=== PATIENT | female | born 1940 | race Hispanic/Latino ===

== ENCOUNTER 2018-05-19 20:50 | Emergency (ER) | payer MEDICARE, OTHER ==
[~2018-05-19] VITALS: Ht 147.3 cm; Wt 78.9 kg
[2018-05-19] MEDS ORDERED: ALBUTEROL/IPRATROPIUM 3 ML NEB NEB ONE (21:15)
[2018-05-19] MEDS ORDERED: METHYLPREDNISOLONE SOD SUCC 125 MG/2ML VIAL IV ONE (21:15)
[2018-05-19] MEDS ORDERED: CEFTRIAXONE SOD 1 GM VIAL IV SCH (22:30)
--- NOTE | 2018-05-19 22:45 | Diagnostic Imaging Report ---
Exam: AP view of the chest Indication: Cough, congestion Comparison: None Findings: Mild bronchial thickening without consolidation. The cardiomediastinal silhouette and bones are unremarkable. Surgical clips right upper quadrant of the abdomen. Impression: Mild bronchial thickening without consolidation. Findings are nonspecific, but can be seen in atypical/viral infection. Signed by: Dr. Marisel Ku M.D. on 05/19/2018 10:42 PM
== END 2018-05-20 00:35 | disposition other institution (70) ==
LOC: FSED 20:50
DX: R09.02 Hypoxemia (principal); R05 Cough; J11.08 Influenza due to unidentified influenza virus with specified pneumonia
CPT/HCPCS: 71045; 80053; 82553; 84484; 85025; 87040; 87071; 87205; 99284; J2930

== ENCOUNTER 2018-06-07 15:10 | Inpatient (IN) | payer MEDICARE, OTHER ==
[~2018-06-07] VITALS: Ht 160 cm; Wt 78.0 kg
--- OUTSIDE RECORDS SUMMARY | 2018-06-07 15:14 | XMS REPORT ---
Author Author Kym Chávez Organization [employer] Address Unknown Phone Unavailable Care Team Providers Care Guide Escort Name Role Phone Kym Chávez Unavailable Allergies, Adverse Reactions, Alerts Substance Reaction Event Type N.K.D.A. 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 Problem Benign hypertensive heart disease I11.9 Active Problem Hypothyroid E03.9 Active Problem Diabetes mellitus E11.9 Active Problem Exercise-induced shortness of breath R06.02 Active Assessment Obesity E66.9 Active Assessment Hypothyroid E03.9 Active Assessment Left arm numbness R20.0 Active Assessment Varicose veins of lower extremities with other complications I83.893 Active Assessment Benign hypertensive heart disease I11.9 Active Assessment Exercise-induced shortness of breath R06.02 Active Assessment Pure hypercholesterolemia E78.01 Active Assessment Chest pain R07.9 Active Assessment Diabetes mellitus E11.9 Active Problem Pure hypercholesterolemia E78.01 Active Medications Medication Code System Code Instructions Start Date End Date Status Dosage Losartan Potassium [facility] [address]-34 25 MG Orally Once a day Active 1 tablet Simvastatin [facility] [address]-54 20 mg Orally Once a day Active 1 tablet Levothyroxine Sodium [facility] [address]-52 50 MCG Orally Once a day Active 1 tablet Atenolol [facility] [address]-24 25 MG Orally Once a day Active 1 tablet once a day orally 90 days Tramadol HCl [facility] [address]-11 50 mg Orally as needed (prn) Active 1 tablet Lamotrigine [facility] [address]-07 25 MG Orally Twice a day Active 3 tablets Vital Signs Date/Time: September 28, 2016 BMI 31.55 Index Weight 167 lbs Height 61 in Temperature 97.6 F Cardiac Monitoring Heart Rate 58 /min Blood Pressure Diastolic 80 mm Hg Blood Pressure Systolic 132 mm Hg Results No Known Results Summary Purpose [employer] Submission
--- OUTSIDE RECORDS SUMMARY | 2018-06-07 15:14 | XMS REPORT ---
Author Author Kym Chávez Organization [employer] Address Unknown Phone Unavailable Care Team Providers Care Architecture Internship Name Role Phone Kym Chávez Unavailable Allergies, Adverse Reactions, Alerts Substance Reaction Event Type N.K.D.A. Info Not Available Non Drug Allergy Problems Problem Type Condition Code Onset Dates Condition Status Assessment Chest pain R07.9 Active Problem Chest pain R07.9 Active Problem Pure hypercholesterolemia E78.01 Active Problem Diabetes mellitus E11.9 Active Problem Exercise-induced shortness of breath R06.02 Active Problem Varicose veins of lower extremities with other complications I83.893 Active Problem Obesity E66.9 Active Problem Venous insufficiency I87.2 Active Problem Benign hypertensive heart disease I11.9 Active Problem Hypothyroid E03.9 Active Assessment Venous insufficiency I87.2 Active Assessment Obesity E66.9 Active Assessment Pure hypercholesterolemia E78.01 Active Assessment Varicose veins of lower extremities with other complications I83.893 Active Assessment Diabetes mellitus E11.9 Active Assessment Hypothyroid E03.9 Active Assessment Benign hypertensive heart disease I11.9 Active Assessment 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 Assessment Exercise-induced shortness of breath R06.02 Active Medications Medication Code System Code Instructions Start Date End Date Status Dosage Lamotrigine [facility] [address]-64 25 MG Orally Twice a day Active 3 tablets Simvastatin [facility] [address]-77 20 mg Orally Once a day Active 1 tablet Levothyroxine Sodium [facility] [address]-26 50 MCG Orally Once a day Active 1 tablet Atenolol [facility] 50026686042 25 MG Active 1 TABLET ONCE A DAY ORALLY 90 DAYS Sertraline HCl [facility] [address]-70 50 mg Orally Once a day Active 1 tablet Metformin HCl [facility] [address]-02 500 mg Orally once a day Active 1 tablet Tramadol HCl [facility] [address]-57 50 mg Orally as needed (prn) Active 1 tablet Losartan Potassium [facility] [address]-56 25 MG Orally Once a day Active 1 tablet Vital Signs Date/Time: Jan 21, 2016 BMI 32.87 Index Weight 174 lbs Height 61 in Temperature 98.1 F Cardiac Monitoring Heart Rate 52 /min Blood Pressure Diastolic 82 mm Hg Blood Pressure Systolic 124 mm Hg Results No Known Results Summary Purpose [employer] Submission
--- OUTSIDE RECORDS SUMMARY | 2018-06-07 15:14 | XMS REPORT | Continuity of Care Document ---
Author Author [facility] Interface Address Unknown Phone Unavailable Problems Problem Status Onset Date Classification Date Reported Comments Source PNA Active 05/19/2018 [facility] FLU A Active 05/19/2018 [facility] UNK Active 10/13/2016 [facility] Z12.31 - ENCNTR SCREEN MAMMOGRAM FOR MA Active 04/19/2016 OP[facility] Brandon 553.3/530.81/562.10 Active 03/10/2011 [facility] OTHER Active 03/10/2011 [facility] ABNORMAL LIVER ENZYMES Active 02/10/2011 [facility] 790.4/530.81/536.8 Active 02/04/2011 [facility] Venous insufficiency Active Problem 06/03/2018 Thiago Chávez Benign hypertensive heart disease Active Problem 06/03/2018 Thiago Chávez Exercise-induced shortness of breath Active Problem 06/03/2018 Thiago Chávez Status post ablation of incompetent vein using laser Active Problem 06/03/2018 Thiago Chávez Left arm numbness Active Problem 06/03/2018 Thiago Chávez Arteriosclerosis of both carotid arteries Active Problem 06/03/2018 Thiago Chávez Hypothyroid Active Problem 06/03/2018 Thiago Chávez Diabetes mellitus Active Problem 06/03/2018 Thiago Chávez Pure hypercholesterolemia Active Problem 06/03/2018 Thiago Chávez Varicose veins of lower extremities with other complications Active Problem 06/03/2018 Thiago Chávez Obesity Active Diagnosis 06/03/2018 Thiago Chávez Chest pain Active Problem 06/03/2018 Thiago Chávez Diabetes mellitus Active Diagnosis 12/13/2015 Mohgeoff Chávez Hypercholesterolemia Active Problem 12/13/2015 Thiago Chávez Varicose veins of leg with swelling Active Problem 12/13/2015 Thiago Chávez Chronic cerebrospinal venous insufficiency Active Problem 04/13/2014 Thiago Chávez Cardiac pain Active Problem 12/13/2015 Thiago Chávez Varicose veins of lower extremities with other complications Active Problem 12/13/2015 Thiago Greg Chávez Mitral valve disorder Active Problem 12/13/2015 Thiago Greg Chávez Tricuspid valve abscess Active Problem 12/13/2015 Thiago Greg Chávez Exercise-induced shortness of breath Active Problem 12/13/2015 Thiago Greg Chávez Benign hypertensive heart disease Active Problem 12/13/2015 Thiago Greg Chávez Generalized osteoarthrosis Active Problem 12/13/2015 Lizetgeoff Greg Chávez Hypothyroidism Active Diagnosis 12/13/2015 Lizetge[facility] Greg Chávez Obesity Active Diagnosis 12/13/2015 Lizet[facility] Greg Chávez Chronic venous insufficiency Active Problem 03/13/2014 Lizetge[facility] Greg Chávez Venous insufficiency (peripheral) Active Problem 12/13/2015 Lizetge[facility] Greg Chávez Varicose veins of lower extremities with complications Active Problem 12/13/2015 Lizetgeoff Greg Chávez Final: Encounter for screening mammogram for malignant neoplasm of breast 04/24/2017 OP[facility] Brandon Acid reflux Active Problem 04/24/2017 OPID Brandon,[facility] Pneumonia of lower lobe due to infectious organism, unspecified laterality Active Diagnosis 06/02/2018 [facility] PNEUMONIA, UNSPECIFIED ORGANISM Active [facility] FLU DUE TO OTH IDENT INFLUENZA VIRUS W O Active [facility] Medications Medication Details Route Status Patient Instructions Ordering Provider Order Date Source Mucinex DM 1 tablet as needed Orally Active 30-600 MG Orally every 12 hrs Ghebranious 05/31/2018 [facility] Levaquin 1 tablet Orally Active 500 mg Orally Once a day Ghebranious 05/31/2018 [facility] Hydralazine 10 mg, Route: IVP, Q20Min, Dosing Weight 77.301, kg, PRN Elevated BP, Start date: 11/04/16 8:33:00 CDT, Duration: 2 doses or times, Stop date: Limited # of times Inactive 11/04/2016 [facility] Labetalol 10 mg, Route: IVP, Q5Min, Dosing Weight 77.301, kg, PRN Elevated BP, Start date: 11/04/16 8:33:00 CDT, Duration: 5 doses or times, Stop date: Limited # of times Inactive 11/04/2016 [facility] esmolol 10 mg, Route: IVP, Q5Min, Dosing Weight 77.301, kg, PRN Other -See Comment, Start date: 11/04/16 8:33:00 CDT, Duration: 5 doses or times, Stop date: Limited # of times Inactive 11/04/2016 [facility] Acetaminophen 1,000 mg, Route: PO, Drug form: TAB, ONCE, Dosing Weight 77.301, kg, PRN Pain Score 1-3, Start date: 11/04/16 8:33:00 CDT, Duration: 1 doses or times, Stop date: Limited # of times Inactive 11/04/2016 [facility] Oxycodone 5 mg, Route: PO, Drug form: TAB, Q4H, Dosing Weight 77.301, kg, PRN Pain Score 4-6, Start date: 11/04/16 8:33:00 CDT, Duration: 30 day, Stop date: 12/04/16 8:32:00 CDT Inactive 11/04/2016 [facility] Naloxone 0.4 mg, Route: IVP, Q2MIN, Dosing Weight 77.301, kg, PRN Narcotic Reversal, Start date: 11/04/16 8:33:00 CDT, Duration: 8 doses or times, Stop date: Limited # of times Inactive 11/04/2016 [facility] Albuterol 0.83 MG/ML Inhalant Solution 2.49 mg, Route: NEB, Q20Min, Dosing Weight 77.301, kg, PRN Wheezing, Priority: STAT, Start date: 11/04/16 8:33:00 CDT, Duration: 30 day, Stop date: 12/04/16 8:32:00 CDT Inactive 11/04/2016 [facility] Hydromorphone 0.5 mg, Route: IVP, Q5Min, Dosing Weight 77.301, kg, PRN Pain Score 7-10, Start date: 11/04/16 8:33:00 CDT, Duration: 4 doses or times, Stop date: Limited # of times Inactive 11/04/2016 [facility] Flumazenil 0.2 mg, Route: IVP, PRN, Dosing Weight 77.301, kg, PRN Benzodiazepine Reversal, Initial dose, Start date: 11/04/16 8:33:00 CDT, Duration: 30 day, Stop date: 12/04/16 8:32:00 CDT Inactive 11/04/2016 [facility] Ondansetron 4 mg, Route: IVP, ONCE, Dosing Weight 77.301, kg, PRN Nausea & Vomiting, Start date: 11/04/16 8:33:00 CDT Inactive 11/04/2016 [facility] Promethazine 6.25 mg, Route: IVPB, ONCE, Dosing Weight 77.301, kg, PRN Nausea & Vomiting, Start date: 11/04/16 8:33:00 CDT Inactive 11/04/2016 [facility] Diphenhydramine 12.5 mg, Route: IVP, Drug form: INJ, Q6H, Dosing Weight 77.301, kg, PRN Itching, Start date: 11/04/16 8:33:00 CDT, Duration: 30 day, Stop date: 12/04/16 8:32:00 CDT Inactive 11/04/2016 [facility] Meperidine 12.5 mg, Route: IVP, Q30Min, Dosing Weight 77.301, kg, PRN Other -See Comment, For shivering, Start date: 11/04/16 8:33:00 CDT, Duration: 2 doses or times, Stop date: Limited # of times Inactive 11/04/2016 [facility] Calcium Chloride 0.0014 MEQ/ML / Potassium Chloride 0.004 MEQ/ML / Sodium Chloride 0.103 MEQ/ML / Sodium Lactate 0.028 MEQ/ML Injectable Solution 1,000 mL, Rate: 125 ml/hr, Infuse over: 8 hr, Route: IV, Dosing Weight 77.301 kg, Total Volume: 1,000, Start date: 11/04/16 8:33:00 CDT, Duration: 30 day, Stop date: 12/04/16 8:32:00 CDT Inactive 11/04/2016 [facility] esmolol (ANES) Route: IV, Drug form: INJ, ONCE, Stop date: 11/04/16 8:21:00 CDT Inactive 11/04/2016 [facility] lidocaine (ANES) Route: IV, Drug form: INJ, ONCE, Stop date: 11/04/16 8:12:00 CDT Inactive 11/04/2016 [facility] fentaNYL (ANES) Route: IV, Drug form: INJ, ONCE, Stop date: 11/04/16 8:12:00 CDT Inactive 11/04/2016 [facility] ceFAZolin (ANES) Route: IV, Drug form: INJ, ONCE, Stop date: 11/04/16 8:12:00 CDT Inactive 11/04/2016 [facility] midazolam (ANES) Route: IV, Drug form: SOLN, ONCE, Stop date: 11/04/16 8:12:00 CDT Inactive 11/04/2016 [facility] acetaminophen (ANES) (ANES) Route: IV, Drug form: INJ, Start date: 11/04/16 7:52:00 CDT, Stop date: 11/04/16 8:52:00 CDT Inactive 11/04/2016 [facility] Albuterol 0.833 MG/ML / Ipratropium Hull 0.167 MG/ML Inhalant Solution 3 mL, Route: NEB, Dosing Weight 77.301, kg, ONCE, STAT, Start date: 11/04/16 7:39:00 CDT, Stop date: 11/04/16 7:39:00 CDT Inactive 11/04/2016 [facility] Calcium Chloride 0.0014 MEQ/ML / Potassium Chloride 0.004 MEQ/ML / Sodium Chloride 0.103 MEQ/ML / Sodium Lactate 0.028 MEQ/ML Injectable Solution 1,000 mL, Rate: 25 ml/hr, Infuse over: 40 hr, Route: IV, Dosing Weight 77.301 kg, Total Volume: 1,000, Start date: 11/04/16 7:39:00 CDT, Duration: 30 day, Stop date: 12/04/16 7:38:00 CDT Inactive 11/04/2016 [facility] propofol (ANES) (ANES) Route: IV, Drug form: INJ, Start date: 11/04/16 7:30:00 CDT, Stop date: 11/04/16 8:30:00 CDT Inactive 11/04/2016 [facility] LR 1000 mL INJ (ANES) Route: IV, Total Volume: 1,000, Start date: 11/04/16 7:25:00 CDT, Stop date: 11/04/16 8:25:00 CDT Inactive 11/04/2016 [facility] Lamotrigine 3 tablets Orally Active 25 MG Orally Twice a day Kyler Chávez Simvastatin 1 tablet Orally Active 20 mg Orally Once a day Kyler Chávez Tramadol HCl 1 tablet Orally Active 50 mg Orally as needed (prn) Kyler Chávez Losartan Potassium 1 tablet Orally Active 25 MG Orally Once a day Alejandropatel Chávez Atenolol 1 tablet once a day orally 90 days Orally Active 25 MG Orally Once a day Alejandropatel Chávez Levothyroxine Sodium 1 tablet Orally Active 50 MCG Orally Once a day Alejandropatel Chávez Lamotrigine 3 tablets Orally Active 25 MG Orally Twice a day Alejandropatel Chávez Simvastatin 1 tablet Orally Active 20 mg Orally Once a day Alejandropatel Chávez Levothyroxine Sodium 1 tablet Orally Active 50 MCG Orally Once a day Alejandropatel Chávez Sertraline HCl 1 tablet Orally Active 50 mg Orally Once a day Alejandropatel Chávez Metformin HCl 1 tablet Orally Active 500 mg Orally once a day Alejandropatel Chávez Tramadol HCl 1 tablet Orally Active 50 mg Orally as needed (prn) Alejandropatel Chávez Losartan Potassium 1 tablet Orally Active 25 MG Orally Once a day Alejandropatel Chávez Atenolol 1 tablet once a day orally 90 days Orally Active 25 MG Orally Once a day Alejandropatel Chávez Divalproex Sodium 2 tablet Orally Active 500 mg Orally once a day Alejandropatel Chávez Sertraline HCl 1 tablet Orally Active 50 mg Orally Once a day Alejandropatel Chávez Naproxen 1 tablet Orally Active 500 mg Orally as needed (prn) Alejandropatel Chávez Nexium 1 capsule Orally Active 40 MG Orally Once a day Alejandropatel Chávez Duloxetine HCl 1 capsule Orally Active 60 MG Orally Once a day Alejandropatel Chávez Abilify 1/2 half tablet Orally Active 5 MG Orally Once a day Alejandropatel Chávez Amlodipine Besylate 1 tablet Orally Active 5 MG Orally Once a day if SBP >135 Ghebranious [facility] Dextromethorphan-Guaifenesin 10 ml as needed Orally Active 10- 100 MG/5ML Orally every 4 hrs Ghebranious [facility] PredniSONE as directed Orally Active 10 mg Orally 2 tablets x3 dats, 1 tablet x3 days and 1/2 tablet for 3 days Ghebranious [facility] Losartan Potassium 1 tablet Orally Active 100 MG Orally Once a day ebranious [facility] Acetaminophen 1 tablet as needed Orally Active 325 MG Orally every 4 hrs Ghebranious [facility] Lamotrigine 1 tablet Orally Active 200 MG [facility] Omeprazole 1 capsule Orally Active 40 mg Orally [facility] Ranitidine HCl 1 capsule at bedtime Orally Active 150 MG Orally [facility] Naproxen 1 tablet with food or milk as needed Orally Active 375 MG Orally every 12 hrs [facility] Levothyroxine Sodium 1 tablet on an empty stomach in the morning Orally Active 50 MCG Orally Once a day [facility] Allergies, Adverse Reactions, Alerts Substance Category Reaction Severity Reaction type Status Date Reported Comments Source N.K.D.A. 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 No signs or symptoms provided. Comparison: None FINDINGS LUNGS: The lungs are clear of consolidation, pleural effusion, and pneumothorax. Mild prominence of the pulmonary vascularity and interstitium likely related to image technique or mild interstitial disease. A lobulated opacity measuring up to 2.1 seen laterally in right lung base on the PA film may represent artifact, but early consolidation or pulmonary lesion is not excluded. HEART AND MEDIASTINUM: Mild cardiomegaly. LINES: None. OSSEOUS STRUCTURES: No fracture, dislocation, or suspicious focal osseous lesion. OTHER: None. IMPRESSION: 1. Indeterminate lobulated opacity laterally in the right lung base may represent artifact, indeterminate pulmonary lesion, or early consolidation. Short interval follow-up radiographs or CT chest is recommended. 2. Mild prominence of the interstitium and pulmonary vascularity either related to image technique or mild interstitial disease. 3. Mild cardiomegaly. SL: TPAINTER-PC 05/20/2018 - - Read by: Richi Garcia MD Dictated Date/time: 05/20/18 14:33 Electronically Signed by: Richi Garcia MD 05/20/18 14:35 FINAL REPORT [facility] Breast Mammo Scrn CHRISTOPHER incl CAD MA Breast Mammo Scrn CHRISTOPHER incl CAD MA BILATERAL DIGITAL SCREENING MAMMOGRAM WITH CAD: 04/21/2017 CLINICAL: Routine/Screening. Current study was evaluated with a Computer Aided Detection (CAD) system. COMPARISON:Comparison is made to exams dated: 04/19/2016 mammogram, 04/11/2015 mammogram, 10/05/2013 mammogram, and 09/29/2012 mammogram - [facility]. TECHNIQUE: Mammographic views were obtained using digital acquisition. Current study was also evaluated with a Computer Aided Detection (CAD) system. FINDINGS: The tissue of both breasts is almost entirely fat. There are benign vascular calcifications in both breasts. No significant masses, calcifications, or other findings are seen in either breast. There has been no significant interval change. IMPRESSION: BENIGN RECOMMENDATION:There is no mammographic evidence of malignancy. A 1 year screening mammogram is recommended.(04/22/2018) This exam was interpreted at [id number] at [facility]. Tiarra Anderson M.D. ak/penrad:04/21/2017 14:27:23 Child Watch Attendant(s): RT Augustus(R)(M), [facility] letter sent: BI-RADS 1/2 Mammogram BI-RADS: 2 Benign 04/21/2017 - - Read by: Tiarra Anderson MD Dictated Date/time: 04/21/17 14:27 Electronically Signed by: Tiarra Anderson MD 04/21/17 14:27 [facility] CHEM PANEL Glucose Lvl 76 mg/dL 70 - 99 11/03/2016 [facility] HEMATOLOGY Monocytes # 0.5 K/CMM 0.0 - 0.8 11/03/2016 [facility] HEMATOLOGY Eosinophils # 0.2 K/CMM 0.0 - 0.5 11/03/2016 [facility] Lymphocytes # 1.5 K/CMM 1.0 - 5.5 11/03/2016 [facility] Segs-Bands # 4.1 K/CMM 1.5 - 8.1 11/03/2016 [facility] Basophils # 0.1 K/CMM 0.0 - 0.2 11/03/2016 [facility] Monocytes 8.2 % 2.0 - 12.0 11/03/2016 [facility] Lymphocytes 24.0 % 20.0 - 40.0 11/03/2016 [facility] Segs 63.5 % 45.0 - 75.0 11/03/2016 [facility] Plt Morph Normal (11/03/16 3:06 PM) 11/03/2016 [facility] Basophils 1.1 % 0.0 - 1.0 11/03/2016 [facility] Eosinophils 3.2 % 0.0 - 4.0 11/03/2016 [facility] RBC Morph Normal (11/03/16 3:06 PM) 11/03/2016 [facility] WBC 6.4 K/CMM 3.7 - 10.4 11/03/2016 [facility] MCV 82.0 fL 80.0 - 98.0 11/03/2016 [facility] Platelet 171 K/CMM 133 - 450 11/03/2016 [facility] MCH 26.9 pg 27.0 - 31.0 11/03/2016 [facility] RDW 14.9 % 11.5 - 14.5 11/03/2016 [facility] MCHC 32.8 g/dL 32.0 - 36.0 11/03/2016 [facility] Hgb 10.8 g/dL 12.0 - 16.0 11/03/2016 [facility] Hct 32.8 % 36.0 - 48.0 11/03/2016 [facility] RBC 4.00 M/CMM 4.20 - 5.40 11/03/2016 [facility] MPV 8.0 fL 7.4 - 10.4 11/03/2016 [facility] Digital Mammo Screening Christopher MA Digital Mammo Screening Christopher MA - DIGITAL MAMMO SCREENING CHRISTOPHER MA BILATERAL DIGITAL SCREENING MAMMOGRAM WITH CAD: 04/19/2016 CLINICAL: Routine. Current study was evaluated with a Computer Aided Detection (CAD) system. Comparison is made to exams dated: 04/11/2015 mammogram, 10/05/2013 mammogram, 09/29/2012 mammogram, 06/22/2011 mammogram - [facility], 01/30/2010 mammogram - [facility] and 11/20/2008 mammogram. The tissue of both breasts is almost entirely fat. There are benign vascular calcifications in both breasts. No significant masses, calcifications, or other findings are seen in either breast. There has been no significant interval change. IMPRESSION: BENIGN There is no mammographic evidence of malignancy. A 1 year screening mammogram is recommended. Professional services are provided by the [facility]. Idris Dubose M.D., cm/penrad:04/20/2016 10:35:06 Child Watch Attendant: Lashae WRIGHT(R)(Lynette), [facility] This exam was dictated and interpreted by [id number] for ALEX Daniels 15. letter sent: Normal exam Mammogram BI-RADS: 2 Benign 04/19/2016 - - Read by: Reg Dubose III, MD Dictated Date/time: 04/20/16 10:35 Electronically Signed by: Rge Dubose III, MD 04/20/16 10:35 FINAL REPORT MARIBETH Clements Digital Mammo Screening Christopher MA Digital Mammo Screening Christopher MA - DIGITAL MAMMO SCREENING CHRISTOPHER MA BILATERAL DIGITAL SCREENING MAMMOGRAM WITH CAD: 04/11/2015 CLINICAL: Routine. Current study was evaluated with a Computer Aided Detection (CAD) system. Comparison is made to exams dated: 10/05/2013 mammogram, 09/29/2012 mammogram, 06/22/2011 mammogram - [facility], 01/30/2010 mammogram - [facility], 11/20/2008 mammogram and 11/09/2004 mammogram. The tissue of both breasts is almost entirely fat. There are benign vascular calcifications in both breasts. No significant masses, calcifications, or other findings are seen in either breast. There has been no significant interval change. IMPRESSION: BENIGN There is no mammographic evidence of malignancy. A 1 year screening mammogram is recommended. Irdis Dubose M.D., cm/penrad:04/14/2015 08:49:33 Child Watch Attendant: Sruthi Trimble, [facility] This exam was dictated and interpreted by [id number] for Brandon. letter sent: Normal exam Mammogram BI-RADS: 2 Benign 04/11/2015 - - Read by: Reg Gutierrez MD Dictated Date/time: 04/14/15 08:49 Electronically Signed by: Reg Gutierrez MD 04/14/15 08:49 FINAL REPORT LESVIA Clements Vital Signs Vital Sign Value Date Comments Source Weight 178 05/03/2018 Mohamed O Jeroudi Height 61 05/03/2018 Mohamed O Jeroudi Temperature Oral (F) 96.0 F 05/03/2018 [facility] Heart Rate 88 05/03/2018 [facility] O Jer[facility]i Diastolic (mm Hg) 82 05/03/2018 Mohamed O Jeroudi Systolic (mm Hg) 138 05/03/2018 Mohamed O Jeroudi Systolic (mm Hg) 105 11/04/2016 [facility] Diastolic (mm Hg) 55 11/04/2016 [facility] Systolic (mm Hg) 151 11/04/2016 [facility] Diastolic (mm Hg) 95 11/04/2016 [facility] Systolic (mm Hg) 135 11/04/2016 [facility] Diastolic (mm Hg) 51 11/04/2016 [facility] Respitory Rate 15 11/04/2016 [facility] Respitory Rate 15 11/04/2016 [facility] Respitory Rate 17 11/04/2016 [facility] BMI Calculated 32.2 11/03/2016 [facility] Weight 77.301 11/03/2016 [facility] Height 154.94 cm 11/03/2016 [facility] Heart Rate 63 11/03/2016 [facility] Temperature Oral (F) 98.0 F 11/03/2016 [facility] Weight 169 10/13/2016 [facility] [place] 61 10/13/2016 Mohamed O Jeroudi Temperature Oral (F) 97.1 F 10/13/2016 Mohamed O Jeroudi Heart Rate 60 10/13/2016 Mohamed O Jeroudi Diastolic (mm Hg) 80 10/13/2016 Mohamed O Jeroudi Systolic (mm Hg) 122 10/13/2016 Moh[facility] O Jer[facility]i Weight 167 09/28/2016 Mohamed O Jeroudi Height 61 09/28/2016 Mohamed O Jeroudi Temperature Oral (F) 97.6 F 09/28/2016 [facility] O [facility]i Heart Rate 58 09/28/2016 Mohamed O Jeroudi Diastolic (mm Hg) 80 09/28/2016 Mohamed O Jeroudi Systolic (mm Hg) 132 09/28/2016 Mohamed O Jeroudi Weight 173 02/05/2016 Mohamed O Jeroudi Height 61 02/05/2016 Mohamed O Jeroudi Temperature Oral (F) 97.5 F 02/05/2016 [facility] O Jeroudi Heart Rate 60 02/05/2016 Mohamed O Jeroudi Diastolic (mm Hg) 80 02/05/2016 Mohamed O Jeroudi Systolic (mm Hg) 126 02/05/2016 Mohamed O Jeroudi Weight 174 01/21/2016 Mohamed O Jeroudi Height 61 01/21/2016 Mohamed O Jeroudi Temperature Oral (F) 98.1 F 01/21/2016 Mohamed O Jeroudi Heart Rate 52 01/21/2016 Mohamed O Jeroudi Diastolic (mm Hg) 82 01/21/2016 Mohamed O Jeroudi Systolic (mm Hg) 124 01/21/2016 Mohamed O Jeroudi Weight 208 05/27/2014 Mohamed O Jeroudi Height 61 05/27/2014 Mohamed O Jeroudi Temperature Oral (F) 96.7 F 05/27/2014 Mohamed O Jeroudi Heart Rate 79 05/27/2014 Mohamed O Jeroudi Diastolic (mm Hg) 70 05/27/2014 Mohamed O Jeroudi Systolic (mm Hg) 130 05/27/2014 Mohamed O Jeroudi Encounters Location Location Details Encounter Type Encounter Number Reason For Visit Attending Provider ADM Date DC Date Status Source [facility] SKYLER [id number] RUN DACCAK 02/12/2011 02/12/2011 Active [facility] [id number] ABNORMAL LIVER ENZYMES RUKAN DACCAK 02/16/2011 Active [facility] [id number] RUN DACCAK 03/18/2011 Active [facility] Thiago Chávez MD PA Unknown [id number] 03/11/2014 03/11/2014 Thiago Chávez MD PA Unknown [id number] 03/11/2014 03/11/2014 Thiago Chávez MD PA Unknown [id number] 03/11/2014 03/11/2014 Tihago Chávez MD PA Unknown [id number] 04/01/2014 04/01/2014 Thiago Chávez MD PA Unknown [id number] 04/01/2014 04/01/2014 Thiago Chávez [facility] [id number] Shalini Ruslan 05/16/2014 05/16/2014 [facility] Thiago Chávez MD PA Unknown [id number] 05/27/2014 05/27/2014 Thiago Chávez [facility] [place] [facility] [id number] Christian Uy Ayestas 04/11/2015 04/12/2015 [facility] [place] [facility] [place] [facility] [id number] Christian Yu Ayestas 04/19/2016 04/20/2016 [facility] [place] [facility] Day Surgery [id number] Nguyễn Finch 11/04/2016 11/04/2016 [facility] [place] [facility] [id number] Christian Yu Ayestas 04/21/2017 04/22/2017 [facility] [place] [facility] [id number] NATACHA MELVIN MD 05/19/2018 05/20/2018 [facility] Procedures Procedure Code Date Perfomer Comments Source Cholecystectomy 45714021 [facility] [place] Colonoscopy [id number] [facility] [place] Total hysterectomy [id number] [facility] [place] Cholecyst[facility] [id number] [facility] [id number] [facility] Total hysterectomy [id number] [facility]
--- OUTSIDE RECORDS SUMMARY | 2018-06-07 15:14 | XMS REPORT ---
Author Author Thiago Chávez Organization eClinical[employer] Address Unknown Phone Unavailable Care Team Providers Care Independent Producer Name Role Phone Thiago Chávez CP Unavailable Allergies, Adverse Reactions, Alerts Substance Reaction Event Type N.K.D.A. Info Not Available Non Drug Allergy Problems Problem Type Condition Code Onset Dates Condition Status Problem Venous insufficiency I87.2 Active Problem Hypothyroid E03.9 Active Problem Obesity E66.9 Active Problem 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 Problem Left arm numbness R20.0 Active Problem Arteriosclerosis of both carotid arteries I65.23 Active Problem Exercise-induced shortness of breath R06.02 Active Problem Benign hypertensive heart disease I11.9 Active Problem Varicose veins of lower extremities with other complications I83.893 Active Problem Diabetes mellitus E11.9 Active Assessment Hypothyroid E03.9 Active Assessment Pure hypercholesterolemia E78.01 Active Assessment Varicose veins of lower extremities with other complications I83.893 Active Assessment Obesity E66.9 Active Assessment Exercise-induced shortness of breath R06.02 Active Assessment Left arm numbness R20.0 Active Assessment Diabetes mellitus E11.9 Active Problem Pure hypercholesterolemia E78.01 Active Assessment Benign hypertensive heart disease I11.9 Active Problem Chest pain R07.9 Active Medications Medication Code System Code Instructions Start Date End Date Status Dosage Tramadol HCl [facility] [address]-61 50 mg Orally as needed (prn) Active 1 tablet Simvastatin [facility] [address]-55 20 mg Orally Once a day Active 1 tablet Atenolol [facility] [address]-79 25 MG Orally Once a day Active 1 tablet once a day orally 90 days Losartan Potassium [facility] [address]-78 25 MG Orally Once a day Active 1 tablet Levothyroxine Sodium [facility] [address]-88 50 MCG Orally Once a day Active 1 tablet Lamotrigine [facility] [address]-88 25 MG Orally Twice a day Active 3 tablets Vital Signs Date/Time: October 13, 2016 BMI 31.93 Index Weight 169 lbs Height 61 in Temperature 97.1 F Cardiac Monitoring Heart Rate 60 /min Blood Pressure Diastolic 80 mm Hg Blood Pressure Systolic 122 mm Hg Results No Known Results Summary Purpose eClinicalWorks Submission
--- OUTSIDE RECORDS SUMMARY | 2018-06-07 15:14 | XMS REPORT ---
Author Author Kym Chávez Organization [employer] Address Unknown Phone Unavailable Care Team Providers Care Roller Leveler Operator Name Role Phone Kym Chávez Unavailable Allergies, [...] Instructions Start Date End Date Status Dosage Sertraline HCl [facility] [address]-63 50 mg Orally Once a day Active 1 tablet Tramadol HCl [facility] [address]-71 50 mg Orally as needed (prn) Active 1 tablet Losartan Potassium [facility] [address]-16 25 MG Orally Once a day Active 1 tablet Levothyroxine Sodium [facility] [address]-96 50 MCG Orally Once a day Active 1 tablet Metformin HCl [facility] [address]-20 500 mg Orally once a day Active 1 tablet Lamotrigine [facility] [address]-18 25 MG Orally Twice a day Active 3 tablets Atenolol [facility] [address]-68 25 MG Orally Once a day Active 1 tablet once a day orally 90 days Simvastatin [facility] [address]-91 20 mg Orally Once a day Active 1 tablet Vital Signs Date/Time: Feb 05, 2016 BMI 32.68 Index Weight 173 lbs Height 61 in Temperature 97.5 F Cardiac Monitoring Heart Rate 60 /min Blood Pressure Diastolic 80 mm Hg Blood Pressure Systolic 126 mm Hg Results No Known Results Summary Purpose eClinicalWorks Submission
--- OUTSIDE RECORDS SUMMARY | 2018-06-07 15:15 | XMS REPORT | Summary of Care ---
Author Author [facility] Organization [facility] Address Unknown Phone Unavailable Encounter MILLY Boyd(JERRY) [id number] Date(s): 11/04/16 - 11/04/16 [facility] [address] [place] [address]- [phone] Discharge Disposition: Home or Self Care Attending Physician: Nguyễn Finch DPLynette Referring Physician: Nguyễn Finch DPM Vital Signs 1 2 3 Most recent to oldest [Reference Range]: 154.94 cm (11/03/16 2:35 PM) Height 98.0 DegF (11/03/16 2:35 PM) Temperature Oral [96.4-99.1 DegF] 105/55 mmHg (11/04/16 9:47 AM) 151/95 mmHg *HI* (11/04/16 9:05 AM) 135/51 mmHg (11/04/16 9:00 AM) Blood Pressure [90-140/60-90 mmHg] 15 BRMIN (11/04/16 9:00 AM) 15 BRMIN (11/04/16 8:45 AM) 17 BRMIN (11/04/16 8:30 AM) Respiratory Rate [14-20 BRMIN] 63 bpm (11/03/16 2:35 PM) Peripheral Pulse Rate [60-100 bpm] 77.301 kg (11/03/16 2:35 PM) Weight 32.2 m2 (11/03/16 2:35 PM) Body Mass Index Problem List Condition Effective Dates Status Health Status Informant Acid Active reflux(Confirmed) Allergies, Adverse Reactions, Alerts Substance Reaction Severity Status NKDA Active Medications acetaminophen (ANES) (ANES) Route: IV, Drug form: INJ, Start date: 11/04/16 7:52:00 CDT, Stop date: 11/04/16 8:52:00 CDT Start Date: 11/04/16 Stop Date: 11/04/16 Status: Completed albuterol-ipratropium 2.5-0.5 mg inhalation solution 3 mL, Route: NEB, Dosing Weight 77.301, kg, ONCE, STAT, Start date: 11/04/16 7:3 9:00 CDT, Stop date: 11/04/16 7:39:00 CDT Start Date: 11/04/16 Stop Date: 11/04/16 Status: Discontinued ANES acetaminophen 1,000 mg, Route: PO, Drug form: TAB, ONCE, Dosing Weight 77.301, kg, PRN Pain Sc ore 1-3, Start date: 11/04/16 8:33:00 CDT, Duration: 1 doses or times, Stop date : Limited # of times Start Date: 11/04/16 Stop Date: 11/04/16 Status: Discontinued ANES albuterol 0.083% inhalation solution 2.49 mg, Route: NEB, Q20Min, Dosing Weight 77.301, kg, PRN Wheezing, Priority: S TAT, Start date: 11/04/16 8:33:00 CDT, Duration: 30 day, Stop date: 12/04/16 8:3 2:00 CDT Start Date: 11/04/16 Stop Date: 11/04/16 Status: Discontinued ANES diphenhydrAMINE 12.5 mg, Route: IVP, Drug form: INJ, Q6H, Dosing Weight 77.301, kg, PRN Itching, Start date: 11/04/16 8:33:00 CDT, Duration: 30 day, Stop date: 12/04/16 8:32:00 CDT Start Date: 11/04/16 Stop Date: 11/04/16 Status: Discontinued ANES esmolol 10 mg, Route: IVP, Q5Min, Dosing Weight 77.301, kg, PRN Other -See Comment, Star t date: 11/04/16 8:33:00 CDT, Duration: 5 doses or times, Stop date: Limited # o f times Start Date: 11/04/16 Stop Date: 11/04/16 Status: Discontinued ANES flumazenil 0.2 mg, Route: IVP, PRN, Dosing Weight 77.301, kg, PRN Benzodiazepine Reversal, Initial dose, Start date: 11/04/16 8:33:00 CDT, Duration: 30 day, Stop date: 8:32:00 CDT Start Date: 11/04/16 Stop Date: 11/04/16 Status: Discontinued ANES hydrALAZINE 10 mg, Route: IVP, Q20Min, Dosing Weight 77.301, kg, PRN Elevated BP, Start date : 11/04/16 8:33:00 CDT, Duration: 2 doses or times, Stop date: Limited # of time s Start Date: 11/04/16 Stop Date: 11/04/16 Status: Discontinued ANES HYDROmorphone 0.5 mg, Route: IVP, Q5Min, Dosing Weight 77.301, kg, PRN Pain Score 7-10, Start date: 11/04/16 8:33:00 CDT, Duration: 4 doses or times, Stop date: Limited # of times Start Date: 11/04/16 Stop Date: 11/04/16 Status: Discontinued ANES labetalol 10 mg, Route: IVP, Q5Min, Dosing Weight 77.301, kg, PRN Elevated BP, Start date: 11/04/16 8:33:00 CDT, Duration: 5 doses or times, Stop date: Limited # of times Start Date: 11/04/16 Stop Date: 11/04/16 Status: Discontinued ANES meperidine 12.5 mg, Route: IVP, Q30Min, Dosing Weight 77.301, kg, PRN Other -See Comment, F or shivering, Start date: 11/04/16 8:33:00 CDT, Duration: 2 doses or times, Stop date: Limited # of times Start Date: 11/04/16 Stop Date: 11/04/16 Status: Discontinued ANES naloxone 0.4 mg, Route: IVP, Q2MIN, Dosing Weight 77.301, kg, PRN Narcotic Reversal, Star t date: 11/04/16 8:33:00 CDT, Duration: 8 doses or times, Stop date: Limited # o f times Start Date: 11/04/16 Stop Date: 11/04/16 Status: Discontinued ANES ondansetron 4 mg, Route: IVP, ONCE, Dosing Weight 77.301, kg, PRN Nausea & Vomiting, Start date: 11/04/16 8:33:00 CDT Start Date: 11/04/16 Stop Date: 11/04/16 Status: Completed ANES oxyCODONE 5 mg, Route: PO, Drug form: TAB, Q4H, Dosing Weight 77.301, kg, PRN Pain Score 4 -6, Start date: 11/04/16 8:33:00 CDT, Duration: 30 day, Stop date: 12/04/16 8:32 :00 CDT Start Date: 11/04/16 Stop Date: 11/04/16 Status: Discontinued ANES promethazine 6.25 mg, Route: IVPB, ONCE, Dosing Weight 77.301, kg, PRN Nausea & Vomiting, Start date: 11/04/16 8:33:00 CDT Start Date: 11/04/16 Stop Date: 11/04/16 Status: Discontinued ceFAZolin (ANES) Route: IV, Drug form: INJ, ONCE, Stop date: 11/04/16 8:12:00 CDT Start Date: 11/04/16 Stop Date: 11/04/16 Status: Completed esmolol (ANES) Route: IV, Drug form: INJ, ONCE, Stop date: 11/04/16 8:21:00 CDT Start Date: 11/04/16 Stop Date: 11/04/16 Status: Completed fentaNYL (ANES) Route: IV, Drug form: INJ, ONCE, Stop date: 11/04/16 8:12:00 CDT Start Date: 11/04/16 Stop Date: 11/04/16 Status: Completed Lactated Ringers Injection IV 1000 mL 1,000 mL, Rate: 25 ml/hr, Infuse over: 40 hr, Route: IV, Dosing Weight 77.301 kg , Total Volume: 1,000, Start date: 11/04/16 7:39:00 CDT, Duration: 30 day, Stop date: 12/04/16 7:38:00 CDT Start Date: 11/04/16 Stop Date: 11/04/16 Status: Discontinued Lactated Ringers Injection IV 1000 mL 1,000 mL, Rate: 125 ml/hr, Infuse over: 8 hr, Route: IV, Dosing Weight 77.301 kg , Total Volume: 1,000, Start date: 11/04/16 8:33:00 CDT, Duration: 30 day, Stop date: 12/04/16 8:32:00 CDT Start Date: 11/04/16 Stop Date: 11/04/16 Status: Discontinued lidocaine (ANES) Route: IV, Drug form: INJ, ONCE, Stop date: 11/04/16 8:12:00 CDT Start Date: 11/04/16 Stop Date: 11/04/16 Status: Completed LR 1000 mL INJ (ANES) Route: IV, Total Volume: 1,000, Start date: 11/04/16 7:25:00 CDT, Stop date: 8:25:00 CDT Start Date: 11/04/16 Stop Date: 11/04/16 Status: Completed midazolam (ANES) Route: IV, Drug form: SOLN, ONCE, Stop date: 11/04/16 8:12:00 CDT Start Date: 11/04/16 Stop Date: 11/04/16 Status: Completed propofol (ANES) (ANES) Route: IV, Drug form: INJ, Start date: 11/04/16 7:30:00 CDT, Stop date: 11/04/16 8:30:00 CDT Start Date: 11/04/16 Stop Date: 11/04/16 Status: Completed Results CHEM PANEL Most recent to 1 oldest [Reference Range]: Glucose Lvl [70-99 76 mg/dL mg/dL] (11/03/16 3:06 PM) HEMATOLOGY Most recent to 1 oldest [Reference Range]: WBC [3.7-10.4 K/CMM] 6.4 K/CMM (11/03/16 3:06 PM) RBC [4.20-5.40 4.00 M/CMM M/CMM] *LOW* (11/03/16 3:06 PM) Hgb [12.0-16.0 g/dL] 10.8 g/dL *LOW* (11/03/16 3:06 PM) Hct [36.0-48.0 %] 32.8 % *LOW* (11/03/16 3:06 PM) MCV [80.0-98.0 fL] 82.0 fL (11/03/16 3:06 PM) MCH [27.0-31.0 pg] 26.9 pg *LOW* (11/03/16 3:06 PM) MCHC [32.0-36.0 32.8 g/dL g/dL] (11/03/16 3:06 PM) RDW [11.5-14.5 %] 14.9 % *HI* (11/03/16 3:06 PM) Platelet [133-450 171 K/CMM K/CMM] (11/03/16 3:06 PM) MPV [7.4-10.4 fL] 8.0 fL (11/03/16 3:06 PM) Segs [45.0-75.0 %] 63.5 % (11/03/16 3:06 PM) Lymphocytes 24.0 % [20.0-40.0 %] (11/03/16 3:06 PM) Monocytes [2.0-12.0 8.2 % %] (11/03/16 3:06 PM) Eosinophils [0.0-4.0 3.2 % %] (11/03/16 3:06 PM) Basophils [0.0-1.0 1.1 % %] *HI* (11/03/16 3:06 PM) Segs-Bands # 4.1 K/CMM [1.5-8.1 K/CMM] (11/03/16 3:06 PM) Lymphocytes # 1.5 K/CMM [1.0-5.5 K/CMM] (11/03/16 3:06 PM) Monocytes # [0.0-0.8 0.5 K/CMM K/CMM] (11/03/16 3:06 PM) Eosinophils # 0.2 K/CMM [0.0-0.5 K/CMM] (11/03/16 3:06 PM) Basophils # [0.0-0.2 0.1 K/CMM K/CMM] (11/03/16 3:06 PM) RBC Morph Normal (11/03/16 3:06 PM) Plt Morph Normal (11/03/16 3:06 PM) Immunizations No data available for this section Procedures Procedure Date Related Diagnosis Body Site Cholecystectomy Colonoscopy Total hysterectomy Social History Social History Type Response Alcohol Past Smoking Status Former smoker; Type: Cigarettes; Exposure to Tobacco Smoke None; Cigarette Smoking Last 365 Days No; Reg Smoking Cessation Counseling No Assessment and Plan No data available for this section
--- OUTSIDE RECORDS SUMMARY | 2018-06-07 15:15 | XMS REPORT ---
Author Author [facility] Address Unknown Phone Unavailable Care Team Providers Care Hasher Machine Operator Name Role Phone Libia MELVIN Unavailable Unavailable Problems This patient has no known problems. Allergies, Adverse Reactions, Alerts This patient has no known allergies or adverse reactions. Medications This patient has no known medications. Encounters Start Date/Time End Date/Time Encounter Type Admission Type Attending Clinicians Care Facility Care Department Encounter ID 2017-04-28 00:00:00 2017-04-28 00:00:00 Outpatient [facility] [id number] 2017-02-03 09:35:14 2017-02-03 09:35:14 Outpatient [facility] [id number] 2016-11-11 11:28:32 2016-11-11 11:28:32 Outpatient [facility] [id number] 2016-08-19 11:12:48 2016-08-19 11:12:48 Outpatient [facility] [id number] 2016-05-27 11:05:37 2016-05-27 11:05:37 Outpatient [facility] [id number] Results Test Description Test Time Test Comments Text Results Atomic Results Result Comments CXR 1 VEW - HOPD 2018-05-19 22:40:00 [place] [address] Patient Name: LUCIEN VELOZ MR #: [id number] : 1940 Age/Sex: 77/F Req #: [id number] Adm Physician: Ordered by: NATACHA MELVIN MD Report #: [id number] Location: [facility] Room/Bed: Procedure: [id number] HOPD/CXR 1 VEW - HOPD Exam Date: 05/19/18 Exam Time: 2139 REPORT STATUS: Signed Exam: AP view of the chest Indication: Cough, congestion Comparison: None Findings: Mild bronchial thickening without consolidation. The cardiomediastinal silhouette and bones are unremarkable. Surgical clips right upper quadrant of the abdomen. Impression: Mild bronchial thickening without consolidation. Findings are nonspecific, but can be seen in atypical/viral infection. Signed by: Dr. Baldomero Ku M.D. on 05/19/2018 10:42 PM Dictated By: BALDOMERO KU MD 41 Transcribed By: SARAH on 05/19/182241 COPY TO: NATACHA MELVIN MD
--- OUTSIDE RECORDS SUMMARY | 2018-06-07 15:15 | XMS REPORT ---
Author Author Tanika Ward Organization eClinical[employer] Address Unknown Phone Unavailable Care Team Providers Care Service Delivery Management Consultant Name Role Phone Tanika Ward CP Unavailable Allergies No Known Allergies Problems Problem Type Condition Code Onset Dates Condition Status Assessment Pneumonia of lower lobe due to infectious organism, unspecified laterality J18.1 Active Medications Medication Code System Code Instructions Start Date End Date Status Dosage Amlodipine Besylate ND 71104818558 5 MG Orally Once a day if SBP >135 Active 1 tablet Dextromethorphan-Guaifenesin [facility] [address]-74 10-100 MG/5ML Orally every 4 hrs Active 10 ml as needed PredniSONE ND 41061881257 10 mg Orally 2 tablets x3 dats, 1 tablet x3 days and 1/2 tablet for 3 days Active as directed Losartan Potassium ND 72511997889 100 MG Orally Once a day Active 1 tablet Mucinex DM [facility] 29197574038 30-600 MG Orally every 12 hrs May 31, 2018 Active 1 tablet as needed Acetaminophen ND 20908691711 325 MG Orally every 4 hrs Active 1 tablet as needed Lamotrigine ND 76058515580 200 MG Orally Twice a day Active 1 tablet Omeprazole [facility] 97021316330 40 mg Orally Once a day Active 1 capsule Ranitidine HCl [facility] 04301911906 150 MG Orally Once a day Active 1 capsule at bedtime Naproxen ND 45061726161 375 MG Orally every 12 hrs Active 1 tablet with food or milk as needed Levaquin ND 35095549370 500 mg Orally Once a day May 31, 2018 Jun 20, 2018 Active 1 tablet Levothyroxine Sodium ND 08916780995 50 MCG Orally Once a day Active 1 tablet on an empty stomach in the morning Results No Known Results Summary Purpose eClinicalWorks Submission
--- OUTSIDE RECORDS SUMMARY | 2018-06-07 15:15 | XMS REPORT ---
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 Problem Hypercholesterolemia 272.0 Active Problem Benign hypertensive heart disease 402.10 Active Problem 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 Active Assessment Venous insufficiency (chronic) (peripheral) 459.81 Active Assessment Varicose veins of lower extremities with complications 454.8 Active Problem Generalized osteoarthrosis 715.00 Active Problem Hypothyroidism 244.9 Active Medications Medication Code System Code Instructions Start Date End Date Status Dosage Losartan Potassium [facility] [address]-42 25 MG Orally Once a day Active 1 tablet Duloxetine HCl [facility] [address]-56 60 MG Orally Once a day Active 1 capsule Metformin HCl [facility] [address]-54 500 mg Orally once a day Active 1 tablet Naproxen [facility] [address]-21 500 mg Orally as needed (prn) Active 1 tablet Abilify [facility] [address]-00 5 MG Orally Once a day Active 1/2 half tablet Simvastatin [facility] [address]-01 20 mg Orally Once a day Active 1 tablet Atenolol [facility] [address]-39 25 MG Orally Once a day Active 1 tablet Divalproex Sodium [facility] [address]-91 500 mg Orally once a day Active 2 tablet Tramadol HCl [facility] [address]-25 50 mg Orally as needed (prn) Active 1 tablet Sertraline HCl [facility] [address]-92 50 mg Orally Once a day Active 1 tablet Nexium [facility] [address]-26 40 MG Orally Once a day Active 1 capsule Social History Social History Element Qualifiers Date Reported Smoking . Status Former Smoker quit in 1978Jan 10, 2014 Alcohol Use No. Jan 10, 2014 Alcohol Screening: No. Did you have a drink containing alcohol in the past year?: No, Points: 0, Interpretation: Negative Jan 10, 2014 Marital Status: . Jan 10, 2014 Do you drink alcohol? No. Jan 10, 2014 Occupation: . Retired [employer] T[employer] Jan 10, 2014 Summary Purpose eClinicalWorks Submission
--- OUTSIDE RECORDS SUMMARY | 2018-06-07 15:15 | XMS REPORT ---
Author Author Thiago Chávez Organization [employer] Address Unknown Phone Unavailable Care Team Providers Care Litigation Specialist Name Role Phone Thiago Chávez CP Unavailable Allergies, Adverse Reactions, Alerts Substance Reaction Event Type N.K.D.A. 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 Problem Left arm numbness R20.0 Active Problem Arteriosclerosis of both carotid arteries I65.23 Active Problem Hypothyroid E03.9 Active Problem Diabetes mellitus E11.9 Active Problem Pure hypercholesterolemia E78.01 Active Problem Varicose veins of lower extremities with other complications I83.893 Active Assessment Pure hypercholesterolemia E78.01 Active Assessment Diabetes mellitus E11.9 Active Assessment Obesity E66.9 Active Assessment Hypothyroid E03.9 Active Assessment Varicose veins of lower extremities with other complications I83.893 Active Assessment Benign hypertensive heart disease I11.9 Active Problem Obesity E66.9 Active Assessment Exercise-induced shortness of breath R06.02 Active Problem Chest pain R07.9 Active Medications Medication Code System Code Instructions Start Date End Date Status Dosage Lamotrigine ND 33699738589 25 MG Orally Twice a day Active 3 tablets Simvastatin NDC 28275436067 20 mg Orally Once a day Active 1 tablet Tramadol HCl ND 24019205078 50 mg Orally as needed (prn) Active 1 tablet Losartan Potassium ND 37120015215 25 MG Orally Once a day Active 1 tablet Atenolol ND 02271473913 25 MG Orally Once a day Active 1 tablet once a day orally 90 days Levothyroxine Sodium ND 25551517695 50 MCG Orally Once a day Active 1 tablet Vital Signs Date/Time: May 03, 2018 BMI 33.63 Index Weight 178 lbs Height 61 in Temperature 96.0 F Cardiac Monitoring Heart Rate 88 /min Blood Pressure Diastolic 82 mm Hg Blood Pressure Systolic 138 mm Hg Results Name Result Date Reference Range Unit Abnormality Flag Electrocardiogram (ECG) Summary Purpose eClinicalWorks Submission
--- OUTSIDE RECORDS SUMMARY | 2018-06-07 15:15 | XMS REPORT | Summary of Care ---
Author Author [facility] [place] Organization [facility] [place] Address Unknown Phone Unavailable Encounter HQ Keyurr_jamee(FIN) [id number] Date(s): 04/11/15 - 04/11/[address] [facility] [place] [address] [place] [phone] [place] [address] [phone] Discharge Disposition: Home Attending Physician: Christian Velez MD Vital Signs No data available for this section Problem List No data available for this section Allergies, Adverse Reactions, Alerts Substance Reaction Severity Status NKDA Active Medications No data available for this section Results No data available for this section Immunizations No data available for this section Procedures No data available for this section Social History No data available for this section Assessment and Plan No data available for this section
--- OUTSIDE RECORDS SUMMARY | 2018-06-07 15:15 | XMS REPORT | Summary of Care ---
Author Author [facility] [place] Organization [facility] [place] Address Unknown Phone Unavailable Encounter [facility] Kendrick_jamee(FIN) [id number] Date(s): 04/21/17 - 04/21/17 [facility] [place] [address] [place], [place] [address] [phone] Final: Encounter for screening mammogram for malignant neoplasm of breast Discharge Disposition: Home or Self Care Attending Physician: Christian Velez MD Vital Signs No data available for this section Problem List Condition Effective Dates Status Health [...]
--- OUTSIDE RECORDS SUMMARY | 2018-06-07 15:15 | XMS REPORT | Summary of Care ---
Author Author [facility] [place] Organization [facility] [place] Address Unknown Phone Unavailable Encounter HQ [email or web address](FIN) [id number] Date(s): 04/19/16 - 04/19/16 [facility] [place] [address] [place] [phone] Discharge Disposition: Home or Self Care Attending [...]
--- OUTSIDE RECORDS SUMMARY | 2018-06-07 15:15 | XMS REPORT | Summary of Care ---
Author Organization Unknown Address Unknown Phone Unavailable Encounter HQ Keyurr_jamee(JERRY) [id number] Date(s): 05/16/14 - 05/16/[address] Discharge Disposition: ED Registered In Error Physician Attending: Shalini Mercer MD Reason for Visit CHEST PAIN Problem List No data available for this section Allergies, Adverse Reactions, Alerts Substance Reaction Severity Status NKDA Active Medications No data available for this section Medications Administered During Your Visit No data available for this section Immunizations No data available for this section
--- OUTSIDE RECORDS SUMMARY | 2018-06-07 15:15 | XMS REPORT ---
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 Problem Cardiac pain 786.51 Active Problem Varicose veins of lower extremities with other complications 454.8 Active Problem 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 Problem Exercise-induced shortness of breath 786.05 Active Problem Benign hypertensive heart disease 402.10 Active Assessment Varicose veins of lower extremities with other complications 454.8 Active Problem Generalized osteoarthrosis 715.00 Active Problem Hypothyroidism 244.9 Active Assessment 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 Problem Obesity 278.00 Active Medications Medication Code System Code Instructions Start Date End Date Status Dosage Tramadol HCl [facility] [address]-59 50 mg Orally as needed (prn) Active 1 tablet Divalproex Sodium [facility] [address]-89 500 mg Orally once a day Active 2 tablet Atenolol [facility] [address]-49 25 MG Orally Once a day Active 1 tablet Losartan Potassium [facility] [address]-47 25 MG Orally Once a day Active 1 tablet Sertraline HCl [facility] [address]-25 50 mg Orally Once a day Active 1 tablet Naproxen [facility] [address]-38 500 mg Orally as needed (prn) Active 1 tablet Nexium [facility] [address]-26 40 MG Orally Once a day Active 1 capsule Simvastatin [facility] [address]-46 20 mg Orally Once a day Active 1 tablet Duloxetine HCl [facility] [address]-83 60 MG Orally Once a day Active 1 capsule Metformin HCl [facility] [address]-17 500 mg Orally once a day Active 1 tablet Abilify [facility] [address]-49 5 MG Orally Once a day Active 1/2 half tablet Social History Social History Element Qualifiers Date Reported Smoking . Status Former Smoker quit in 1978Jan 10, 2014 Alcohol Use No. Jan 10, 2014 Alcohol Screening: No. Did you have a drink containing alcohol in the past year?: No, Points: 0, Interpretation: Negative Jan 10, 2014 Marital Status: . Jan 10, 2014 Do you drink alcohol? No. Jan 10, 2014 Occupation: . Retired [employer] Jan 10, 2014 Summary Purpose [employer] Submission
--- OUTSIDE RECORDS SUMMARY | 2018-06-07 15:15 | XMS REPORT | CCD ---
Author Author Auto Generated Organization [facility] Address Unknown Phone Unavailable Care Team Providers Care Print Press Operator Name Role Phone Mariluz Rich CP Jeff Chaidez RP ChartServer, Login CP Unavailable Christian Velez CP Allergies, Adverse Reactions, Alerts Substance Reaction Status NKDA ?? Active
--- OUTSIDE RECORDS SUMMARY | 2018-06-07 15:15 | XMS REPORT ---
Author Author Kym Chávez Organization [employer] Address Unknown Phone Unavailable Care Team Providers Care Industrial Hygiene Manager Name Role Phone Kym Chávez Unavailable Allergies, Adverse Reactions, Alerts Substance Reaction Event Type N.K.D.A. 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 Problem Venous insufficiency (chronic) (peripheral) 459.81 Active Assessment Obesity 278.00 Active Problem 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 Assessment Venous insufficiency (chronic) (peripheral) 459.81 Active Problem Varicose veins of lower extremities with complications 454.8 Active Problem Exercise-induced shortness of breath 786.05 Active Problem Benign hypertensive heart disease 402.10 Active Problem Varicose veins of lower extremities with other complications 454.8 Active Problem Cardiac pain 786.51 Active Assessment Exercise-induced shortness of breath 786.05 Active Assessment Diabetes mellitus 250.00 Active Assessment Hypothyroidism 244.9 Active Assessment Benign hypertensive heart disease 402.10 Active Problem Hypothyroidism 244.9 Active Problem Obesity 278.00 Active Assessment Varicose veins of lower extremities with other complications 454.8 Active Problem Diabetes mellitus 250.00 Active Problem Generalized osteoarthrosis 715.00 Active Problem Varicose veins of leg with swelling 454.8 Active Medications Medication Code System Code Instructions Start Date End Date Status Dosage [facility] [address]-35 500 mg Orally once a day Active 2 tablet Losartan Potassium [facility] [address]-05 25 MG Orally Once a day Active 1 tablet Duloxetine HCl [facility] [address]-43 60 MG Orally Once a day Active 1 capsule Naproxen [facility] [address]-87 500 mg Orally as needed (prn) Active 1 tablet Metformin HCl [facility] [address]-84 500 mg Orally once a day Active 1 tablet Atenolol [facility] [address]-49 25 MG Orally Once a day Active 1 tablet Abilify [facility] [address]-41 5 MG Orally Once a day Active 1/2 half tablet Tramadol HCl [facility] [address]-84 50 mg Orally as needed (prn) Active 1 tablet Sertraline HCl [facility] [address]-07 50 mg Orally Once a day Active 1 tablet Nexium [facility] [address]-20 40 MG Orally Once a day Active 1 capsule Simvastatin [facility] [address]-34 20 mg Orally Once a day Active 1 tablet Social History Social History Element Qualifiers Date Reported Smoking . Status Former Smoker quit in 1979 September 23, 2014 Alcohol Use No. September 23, 2014 Alcohol Screening: No. Did you have a drink containing alcohol in the past year?: No, Points: 0, Interpretation: Negative September 23, 2014 Marital Status: . September 23, 2014 Do you drink alcohol? No. September 23, 2014 Occupation: . Retired [employer] September 23, 2014 Family history Qualifier Description Comment Date Reported Mother [place] September 23, 2014 Father Unknown September 23, 2014 Vital Signs Date/Time: May 27, 2014 Weight 208 lbs Height 61 in Temperature 96.7 F Cardiac Monitoring Heart Rate 79 /min Blood Pressure Diastolic 70 mm Hg Blood Pressure Systolic 130 mm Hg Summary Purpose [employer] Submission
--- OUTSIDE RECORDS SUMMARY | 2018-06-07 15:15 | XMS REPORT | Summary of Care ---
Author Organization Unknown Address Unknown Phone Unavailable Encounter HQ Keyurr_jamee(JERRY) [id number] Date(s): 05/16/14 - 05/16/[address] Discharge Disposition: ED Registered In Error [...]
[2018-06-07] MEDS ORDERED: DIPHENHYDRAMINE HCL INJ 50 MG/ML VIAL IV ONE ×2 (16:45→17:10)
[2018-06-07] MEDS ORDERED: LORAZEPAM INJ 2 MG/ML VIAL IV ONE (18:00)
--- NOTE | 2018-06-07 18:50 | NUR ---
REPORT TO JESSICA OG ALL QUESTIONS ANSWERED
--- NOTE | 2018-06-07 18:53 | Diagnostic Imaging Report ---
Examination: Single supine AP view of the chest. COMPARISON: Chest one view 05/19/2018 INDICATION: AMS, bipolar disorder IMPRESSION: 1. Lines and Tubes: None 2. Lungs are well-inflated. Mild perihilar bronchial cuffing. No consolidation or effusion. 3. Stable enlargement of the cardiac silhouette. Central pulmonary venous congestion, which may be partly due to supine position. 4. No acute bony abnormalities. Signed by: Dr. Davidson Ortega M.D. on 06/07/2018 6:49 PM
--- NOTE | 2018-06-07 19:11 | Diagnostic Imaging Report ---
CT BRAIN [facility] HISTORY: Altered mental status COMPARISON: None. Technique: Noncontrast axial scans were obtained from skull base to the vertex. Coronal and sagittal reconstructions obtained from the axial data. One or more of the following dose reduction techniques were used: Automated exposure control, adjustment of the mA and/or kV according to patient size, and/or utilization of iterative reconstruction technique. Motion and beam hardening artifacts obscure some details. DISCUSSION: Scalp/Skull: Unremarkable. Brain sulci: Mildly prominent. Ventricles: Compensatory dilatation. Extra-axial spaces: No masses or fluid collections. Carotid siphon calcifications are present. Parenchyma: Mild bilateral deep white matter hypodensity is likely chronic microvascular ischemic change. Otherwise, no masses, hemorrhage, or large vascular territory acute infarct. Dural sinuses: No abnormal densities. Sellar/Suprasellar region: Intact. Skull base: Intact. Incidental findings: There is minimal scattered paranasal sinus mucosal thickening. Mild right carotid bulb calcification is partially visualized. IMPRESSION: 1. No acute intracranial abnormalities. 2. Mild supratentorial chronic microvascular ischemic change. Mild generalized cerebral volume loss. Signed by: Dr. Rommel Cevallos M.D. on 06/07/2018 7:08 PM
[2018-06-07] MEDS ORDERED: NAPROXEN250 MG PO (20:20)
[2018-06-07] MEDS ORDERED: LOSARTAN POTAS100 MG PO (20:20)
[2018-06-07] MEDS ORDERED: CLOTRIMAZOLE-BE15 GM TOP (20:20)
[2018-06-07] MEDS ORDERED: SERTRALINE HCL50 MG PO (20:20)
[2018-06-07] MEDS ORDERED: OMEPRAZOLE40 MG (20:20)
[2018-06-07] MEDS ORDERED: RANITIDINE HCL150 M1 (20:20)
[2018-06-07 21:07] VITALS: BP 147/68
[2018-06-07 23:52] VITALS: BP 147/68
[2018-06-08 04:00] VITALS: BP 159/68
[2018-06-08 05:14] LABS: BASOPHILS % 0.5 % (0.0-1.0); EOSINOPHILS # (AUTO) 0.2 (0.0-0.4); EOSINOPHILS % 4.2 % (0.0-6.0); HEMATOCRIT 29.8 % (34.2-44.1); HEMOGLOBIN 9.9 g/dL (12.0-16.0); LYMPHOCYTES # (AUTO) 0.9 (1.0-3.2); LYMPHOCYTES % 22.8 % (18.0-39.1); MEAN CORPUSCULAR HEMOGLOBIN 29.7 pg (28-32); MEAN CORPUSCULAR HGB CONC 33.2 g/dL (31-35); MEAN CORPUSCULAR VOLUME 89.5 fL (81-99); MONOCYTES # (AUTO) 0.4 (0.2-0.8); MONOCYTES % 10.4 % (4.4-11.3); NEUTROPHILS # (AUTO) 2.5 (2.1-6.9); NEUTROPHILS % 61.6 % (38.7-80.0); PLATELET COUNT 127 x10e3/uL (140-360); RED BLOOD COUNT 3.33 x10e6/uL (3.6-5.1); RED CELL DISTRIBUTION WIDTH 14.6 % (11.7-14.4)
[2018-06-08 05:37] LABS: ANION GAP 10.1 mmol/L (8-16); BLOOD UREA NITROGEN 7 mg/dL (7-26); BUN/CREATININE RATIO 12 (6-25); CALCIUM 8.2 mg/dL (8.4-10.2); CARBON DIOXIDE 27 mmol/L (22-29); CHLORIDE 102 mmol/L (98-107); CREATINE KINASE 838 IU/L (29-168); CREATININE, SERUM 0.57 mg/dL (0.57-1.11); EST GLOMERULAR FILTRATION RATE > 60 ML/MIN (60-); GLUCOSE 83 mg/dL (74-118); POTASSIUM 3.1 mmol/L (3.5-5.1); SODIUM 136 mmol/L (136-145)
[2018-06-08] MEDS ORDERED: RISPERIDONE 0.5 MG TAB PO PRN (07:45)
[2018-06-08] MEDS ORDERED: LORAZEPAM INJ 2 MG/ML VIAL IV PRN (07:45)
[2018-06-08] MEDS ORDERED: NORVASC5 MG PO (07:58)
[2018-06-08] MEDS ORDERED: LAMOTRIGINE100 MG PO (07:58)
[2018-06-08] MEDS ORDERED: LEVOTHYROXINE50 MCG PO (07:58)
[2018-06-08 08:00] VITALS: BP 137/63
[2018-06-08] MEDS ORDERED: POTASSIUM CHLORIDE 20 MEQ TAB CR PO STA (08:13)
--- NOTE | 2018-06-08 08:45 | NUR ---
Consult to Dr. Rodrigues called to her cell phone.
[2018-06-08] MEDS: LOSARTAN POTASSIUM 100 MG TAB PO SCH (08:55)
[2018-06-08] MEDS: LAMOTRIGINE 100 MG TAB PO SCH ×2 (08:56→17:04)
[2018-06-08] MEDS: PANTOPRAZOLE SOD 40 MG TABEC PO SCH (08:56)
--- NOTE | 2018-06-08 09:55 | History and Physical ---
PRIMARY CARE PROVIDER: Dr. Christian Yu CHIEF COMPLAINT: Confusion and abnormal limb movements. HISTORY OF PRESENT ILLNESS: Patient is a 77-year-old woman. She has a long history of psychiatric diseases and depression since her 38 years ago. She never used any psychiatric medications until 2005, when she started taking Depakote and Cymbalta. She was subsequently switched to sertraline and Lamictal. Her daughter denies ever seeing any Haldol, Thorazine, or other neuroleptic medications. She never received any injections of psychiatric medications either in [place] or the [place]. About 6-12 months ago, she started having some abnormal limb movements. She was told to consult with a specialist regarding possible Parkinson's disease, but she was never able to make an appointment. She did have occasional falling over the summer. In April of this , 2017, she was hospitalized for 3 days at [facility] from the May 19, 2018, to May 22, 2018, with pneumonia and influenza. Since being discharged from the hospital, her movements have been significantly worse. She had difficulty controlling her leg movements and her arm movements. She has difficulty walking. When standing, she sometimes falls. She does not complain of trouble seeing or double vision. She has no dysarthria. She developed some confusion over the past 1-2 days in addition to the worsening movements and went to the emergency department last night. They initially tried Benadryl with no relief, and then used Ativan IV. With the Ativan, the patient became less agitated and slept. This morning she still has abnormal movements, but does not appear confused. PAST MEDICAL HISTORY 1. History of manic depressive illness as noted above. 2. Hypertension. 3. Hypothyroidism. PAST SURGICAL HISTORY: Noncontributory. FAMILY HISTORY: Noncontributory. SOCIAL HISTORY: The patient lives with her daughter. She has been a for 39 years. She was born and raised in [place], but has lived in the [place] for some time. She is not a smoker or drinker. REVIEW OF SYSTEMS: The patient is afebrile. She does not complain of headache or neck pain. She has no sore throat. She has no chest pain. She is not having any difficulty breathing. She has no nausea or vomiting. She does complain of pain in her legs, particularly in the thigh areas. She also complains of a warm feeling in her distal extremities. She has a bruise on her back on the right lower thoracic area from a prior fall. She has a bruise on her knee from a fall. Neurological complaints include abnormal limb movements and confusion intermittently. PHYSICAL EXAMINATION VITALS: The patient is afebrile. The blood pressure is 159/68 and the saturation is 94%. The pulse is 83. Respiratory rate is 18. HEENT: Shows no facial swelling or erythema. The nasal mucosa is normal. The oropharynx is normal. LYMPHATIC: Shows no submandibular, cervical or supraclavicular adenopathy. CARDIOVASCULAR: Reveals a regular rate and rhythm with a normal S1 and S2. LUNGS: Auscultation of the lungs reveals clear breath sounds bilaterally. There is no wheezing. ABDOMEN: Soft and nontender. There is no rebound or guarding. EXTREMITIES: Shows no leg edema or calf tenderness. There is no cyanosis or clubbing. SKIN: Shows no rashes. NEUROLOGIC: Shows choreiform movements in the upper and lower extremities. Her cranial nerve exam appears normal. Her toes are downgoing. BACK: Does show an ecchymotic area in the right costophrenic angle and lower thoracic area. LABORATORY DATA: BUN, creatinine and other electrolytes are normal except for a low potassium of 3.1. The hemoglobin is 9.9 and white blood cell count is 4. The platelet count is 127,000. IMPRESSION 1. Choreiform movements with intermittent confusion. 2. Metabolic encephalopathy. 3. Hypokalemia. 4. Hypothyroidism. 5. Hypertension. PLAN 1. Neurological evaluation. 2. Low-dose risperidone and Ativan p.r.n. for agitation. 3. Replace potassium. 4. Physical therapy. Job#: [id number] DE
--- NOTE | 2018-06-08 10:59 | NUR ---
PT SLEEPING FAMILY REQUESTED TO COME BACK AT 1230
[2018-06-08 12:00] VITALS: BP 122/63
--- NOTE | 2018-06-08 13:00 | NUR ---
Patient continuously forgets to call for assistance prior to getting up. She was moved closer to the nurses station and bed alarm on for safety.
[2018-06-08 16:38] VITALS: BP 123/58
[2018-06-08] MEDS: FAMOTIDINE 20 MG TAB PO SCH (17:04)
[2018-06-08] MEDS: AMLODIPINE BESYLATE 5 MG TAB PO SCH (17:04)
--- NOTE | 2018-06-08 18:50 | NUR ---
Report given to oncoming shift.
--- NOTE | 2018-06-08 19:14 | Consultation ---
DATE OF CONSULTATION: June 08, 2018 NEUROLOGY CONSULTATION HISTORY OF PRESENT ILLNESS: Ms. Tripp is a 77-year-old woman with past medical history significant for hypertension (not adherent to medication regimen), thyroid disease, gastroesophageal reflux disease, and bipolar disorder, admitted to [facility] on June 07, 2018, with multiple symptoms. For the past 1 year, the patient has experienced "shakiness" of her arms and legs. Her daughter, who is at the bedside, reports the patient is constantly moving her arms and legs. She will cover and uncover herself, dress and undress herself, and perform other activities which appear to give purpose to these movements. According to both the patient and the daughter, these movements are involuntary. Over the last 2 weeks, the frequency and severity of these movements has worsened. Over the past 2 days, the patient has experienced poor balance and an unsteady gait. Ms. Tripp experienced a fall while in the shower 2 days ago, even though her son told her not to shower by herself because she appeared "so shaky." In the past few weeks, the patient has experienced 1 other fall while walking. Fortunately, neither fall has resulted in serious injury. The patient's daughter endorses confusion over the past 2 days. This is further described as impairment of concentration. Ms. Tripp reports walking into a room to tell her son something but forgetting what she wanted to tell him when she reaches the room. At the end of April,, the patient was hospitalized for a few days at [facility] with pneumonia and influenza. She was treated with antibiotics and Tamiflu. Otherwise, there have been no recent additions or adjustments to the patient's home medications. As stated above, Ms. Tripp does have a history of bipolar disorder for which she takes sertraline and lamotrigine. According to her daughter, the patient has taken these medications for years. She sees her psychiatrist every 3 months. REVIEW OF SYSTEMS: Confusion, involuntary movements, multiple recent falls. Otherwise, the 12 point review of systems is negative. PAST MEDICAL HISTORY: Hypertension (reportedly not compliant with medication regimen), thyroid disease, gastroesophageal reflux disease, bipolar disorder. PAST SURGICAL HISTORY: Hysterectomy, cholecystectomy. PAST HOSPITALIZATIONS: Surgeries/procedures as listed, childbirth times 6, hospitalized in April 2018 for pneumonia/influenza. FAMILY MEDICAL HISTORY: The patient's paternal grandparents, maternal grandparents, and parents are all . Their medical histories are unknown. Ms. Tripp had 3 brothers. Two are , and their causes of are unknown. One brother is alive, but his medical history is unknown. Ms. Tripp had 6 children, 3 sons and 3 daughters. One daughter is from alcoholic cirrhosis. Otherwise, all of her children are alive. One son has diabetes mellitus. The remaining 4 children are healthy. SOCIAL HISTORY: Ms. Tripp is . She lives with her son. The patient is retired. Ms. Tripp does report a remote history of tobacco use but quit smoking cigarettes 42 years ago. The patient does not report current alcohol use. She does not report current or prior recreational drug use. HOME MEDICATIONS: Norvasc 5 mg by mouth daily, lamotrigine 100 mg by mouth twice daily, levothyroxine 50 mcg by mouth daily, losartan 100 mg by mouth daily, naproxen 375 mg by mouth daily, omeprazole 40 mg by mouth daily, ranitidine 150 mg by mouth daily, sertraline 50 mg by mouth daily. ALLERGIES: NO KNOWN DRUG ALLERGIES. NO KNOWN FOOD ALLERGIES. NO KNOWN ALLERGIES TO LATEX. NO KNOWN ALLERGIES TO IODINE OR OTHER CONTRAST MATERIALS. PHYSICAL EXAMINATION: VITAL SIGNS: Height 63 inches, weight 171 pounds, BMI 30.3 kg per meter squared. Blood pressure 122/63 mmHg, pulse 73 beats per minute, respiratory rate 18 breaths per minute. Oxygen saturation 97% on room air. GENERAL: The patient is awake and alert, fidgets throughout the encounter. Overweight. HEENT: Normocephalic, atraumatic. Pupils are equal, round, and reactive to light. Moist mucous membranes. NECK: Supple. No appreciable thyromegaly. No appreciable carotid bruits. CARDIOVASCULAR: S1, S2, regular rate and rhythm. No murmurs, rubs, or gallops. RESPIRATORY: Clear to auscultation bilaterally. No wheezes, rhonchi, or rales. EXTREMITIES: The skin is warm and dry. No clubbing, cyanosis, or edema. The posterior tibial and dorsalis pedis pulses are 2+ and symmetric. SKIN: Multiple ecchymoses over the arms and legs. NEUROLOGIC: Memory/Attention: The patient is awake and alert, oriented to person, place (hospital, state), time (month, year), and moderately to situation. Cranial Nerves: Cranial nerve 1--Not tested. Cranial nerve 2, 3, 4, and 6--Pupils are equal and round, react briskly to light (from 4 mm to 2 mm). Extraocular movements intact. No nystagmus. Cranial nerve 5--Sensation to light touch and pinprick is intact in the bilateral V1 through V3 distributions. Strength of the temporalis and masseter muscles is within normal limits. Cranial nerve 7--The face is symmetric as are all facial movements. Strength is within normal limits. Cranial nerve 8--Hearing is diminished to finger rub bilaterally. Cranial nerve 9, 10--The soft palate elevates equally and symmetrically. Cranial nerve 11--Normal strength of the bilateral sternocleidomastoid and trapezius muscles. Cranial nerve 12--The tongue protrudes midline and moves symmetrically from side to side. Strength: Bulk is normal. Strength is 5/5 in the bilateral deltoids, biceps, triceps, wrist flexors and extensors, finger flexors and extensors, intrinsic hand muscles, hip flexors, knee flexors and extensors, ankle dorsiflexion and plantarflexion, and intrinsic foot muscles. Tone is normal. DTRs: Deep tendon reflexes are 1+ and symmetric at the triceps, biceps, and brachioradialis. Deep tendon reflexes are absent and symmetric at the patellas and Achilles. Plantar responses are flexor bilaterally. Sensation: Sensation is intact to light touch and pinprick in both arms and both legs. Cerebellar: Xfdwkc-acvg-fpalbh movements are intact without dysmetria or other impairment. There is dysmetria with bilateral heel-jim movements. Gait: Deferred. Speech: Spontaneous speech is normal without appreciable dysarthria or aphasia. Repetition is intact. Involuntary Movements: The patient appears agitated and fidgets throughout the encounter. Pronator Drift: None. LABORATORY DATA: A basic metabolic panel is significant for a potassium of 3.1 and a calcium of 8.2. Creatine kinase 838. CK-MB 6.70. Troponin I less than 0.05. The CBC with differential and platelets reveals a white blood cell count of 4.03 with a normal differential. The hemoglobin and hematocrit are 9.9 and 29.8, respectively. The platelet count is 127. DIAGNOSTIC STUDIES: Electrocardiogram June 07, 2018: Normal sinus rhythm at 78 beats per minute. Chest x-ray June 07, 2018: 1. Lines and tubes: None. 2. Lungs are well inflated. Mild perihilar bronchial cuffing. No consolidation or effusion. 3. Stable enlargement of the cardiac silhouette. Central pulmonary venous congestion, which may be partly due to supine position. 4. No acute bony abnormalities. CT of the brain without contrast June 07, 2018: On my review, there is no evidence of recent large territorial ischemia, hemorrhage, mass, or mass effect. There is diffuse cerebral atrophy with compensatory dilatation of the ventricles. There are findings compatible with mild to moderate chronic small-vessel ischemic disease. ASSESSMENT AND PLAN: Ms. Tripp is a 77-year-old woman with past medical history as detailed, admitted to [facility] on June 07, 2018, with encephalopathy, an unsteady gait with multiple recent falls and subacute to chronic involuntary movements, worsened over the past few days. Ms. Tripp has undergone a thorough neurological examination with findings detailed above. Her laboratory data and other diagnostic studies have been reviewed and are documented above. RECOMMENDATIONS: 1. For encephalopathy, blood and urine studies will be ordered to evaluate for treatable causes of encephalopathy. These will include: Thyroid function test, an ammonia level, a vitamin B1 level, a vitamin B12 level, rapid plasma reagin, urinalysis with microanalysis, urine culture, blood cultures times 2. 2. According to the patient's daughter, there has been recent significant worsening of the patient's balance and gait. On neurological examination, there is dysmetria with bilateral heel-jim movements. It is possible the patient experienced a stroke in the posterior circulation (i.e. cerebellar vermis or inferior cerebellar hemispheres) which could potentially cause an acute worsening in balance and gait. Therefore, an MRI of the brain without contrast under MAC sedation will be performed. 3. As detailed in the neurological examination, Ms. Tripp appears to fidget throughout the encounter. There are multiple possible causes for her dyskinesias. Parkinson's disease or Parkinson-plus syndromes may have dyskinesias as part of their presentation. However, the patient's history and neurological examination are not compatible with any of these diagnoses. Phoebe's disease may also have dyskinesias as part of its presentation. However, there is no family history of Victor's disease and Ms. Tripp is approximately 30 to 40 years beyond the age when Victor's disease usually presents. There is no evidence of dystonia. It is possible the patient's involuntary movements are a symptom of restless legs syndrome. Further inquiries regarding this diagnosis will be made during a followup encounter. The most likely cause of the patient's dyskinesia is treatment with psychotropic medications. Selective serotonin reuptake inhibitors (i.e. sertraline) and antiepileptic medications (i.e. lamotrigine) may cause dyskinesias. 4. Limit the use of sedative/hypnotic and pain medications as these will alter the patient's sensorium. 5. Utilize environmental cues to limit the occurrence of delirium. 6. Defer treatment of the remaining medical comorbidities to the primary and other services following the patient. Thank you for this consultation. I will continue to follow the patient while she remains in the hospital. Time spent: 70 minutes. Job#: [id number] EV MTDD
[2018-06-08 20:00] VITALS: BP 111/50
[2018-06-08 20:42] LABS: FREE THYROXINE INDEX 2.1512 (1.4-3.8); THYROID STIMULATING HORMONE 1.057 uIU/mL (0.350-4.940)
[2018-06-08] MEDS: SERTRALINE HCL 50 MG TAB PO SCH (21:05)
[2018-06-08 23:45] VITALS: BP 137/61
[2018-06-09] VITALS (8 sets, daily range): BP systolic 110–147; BP diastolic 53–66
[2018-06-09 01:21] LABS: CLARITY,URINE CLEAR (CLEAR); COLOR,URINE YELLOW (YELLOW); KETONES,URINE NEGATIVE (NEGATIVE); LEUKOCYTE ESTERASE ,URINE NEGATIVE (NEGATIVE); NITRITE,URINE NEGATIVE (NEGATIVE); PROTEIN,URINE DIPSTICK NEGATIVE (NEGATIVE)
[2018-06-09 01:22] LABS: BILIRUBIN,URINE NEGATIVE (NEGATIVE); URINE UROBILINOGEN 0.2 mg/dL (0.2 - 1)
[2018-06-09 01:29] LABS: BACTERIA,URINE FEW /HPF; EPITHELIAL CELLS,URINE FEW /LPF; RBC,URINE 0-5 /HPF (0-5); TRANSITIONAL EPI CELLS,URINE FEW; WBC,URINE (MAN) 0-5 /HPF (0-5)
[2018-06-09 05:20] LABS: BASOPHILS % 0.5 % (0.0-1.0); EOSINOPHILS # (AUTO) 0.2 (0.0-0.4); HEMATOCRIT 31.3 % (34.2-44.1); HEMOGLOBIN 10.2 g/dL (12.0-16.0); LYMPHOCYTES # (AUTO) 0.8 (1.0-3.2); LYMPHOCYTES % 17.7 % (18.0-39.1); MEAN CORPUSCULAR HEMOGLOBIN 29.5 pg (28-32); MEAN CORPUSCULAR HGB CONC 32.6 g/dL (31-35); MEAN CORPUSCULAR VOLUME 90.5 fL (81-99); MONOCYTES # (AUTO) 0.5 (0.2-0.8); MONOCYTES % 10.5 % (4.4-11.3); NEUTROPHILS # (AUTO) 2.9 (2.1-6.9); NEUTROPHILS % 66.6 % (38.7-80.0); PLATELET COUNT 136 x10e3/uL (140-360); RED BLOOD COUNT 3.46 x10e6/uL (3.6-5.1); RED CELL DISTRIBUTION WIDTH 14.9 % (11.7-14.4)
[2018-06-09] MEDS: LEVOTHYROXINE SODIUM 50 MCG TAB PO SCH (05:23)
[2018-06-09 05:35] LABS: ALANINE AMINOTRANSFERASE 41 IU/L (0-55); ALBUMIN 2.9 g/dL (3.5-5.0); ALBUMIN/GLOBULIN RATIO 1.1 (0.8-2.0); ALKALINE PHOSPHATASE 62 IU/L (40-150); ANION GAP 9.8 mmol/L (8-16); BLOOD UREA NITROGEN 9 mg/dL (7-26); BUN/CREATININE RATIO 15 (6-25); CALCIUM 8.6 mg/dL (8.4-10.2); CARBON DIOXIDE 27 mmol/L (22-29); CHLORIDE 104 mmol/L (98-107); EST GLOMERULAR FILTRATION RATE > 60 ML/MIN (60-); GLUCOSE 100 mg/dL (74-118); MAGNESIUM 1.9 MG/DL (1.3-2.1); POTASSIUM 3.8 mmol/L (3.5-5.1); SODIUM 137 mmol/L (136-145)
--- NOTE | 2018-06-09 07:14 | NUR ---
PATIENT RESTING IN BED, ALERT WITH NO DISTRESS, CALL LIGHT IN REACH, DAUGHTER AT BED SIDE
[2018-06-09] MEDS: FAMOTIDINE 20 MG TAB PO SCH ×2 (07:30→16:48)
[2018-06-09] MEDS: PANTOPRAZOLE SOD 40 MG TABEC PO SCH (08:24)
[2018-06-09] MEDS: LAMOTRIGINE 100 MG TAB PO SCH ×2 (08:56→16:48)
[2018-06-09] MEDS: LOSARTAN POTASSIUM 100 MG TAB PO SCH (08:56)
[2018-06-09] MEDS ORDERED: LACTATED RINGER'S 1,000 ML ONE (09:11)
--- NOTE | 2018-06-09 10:13 | NUR ---
Assisted patient to walk restroom with walker, after that she refused go back to bed, sitting up in chair. Attempted X2 , explained her about safety, still she refusing, call light in reach, educated to use that for any assistance, she is not agitated. keep monitoring
--- NOTE | 2018-06-09 10:40 | NUR ---
SOCIAL WORK INITIAL ASSESSMENT USED CULTURAL LINK AIRFLIGHT ATTENDANTS SUPERVISOR SIMONA Armando83 [employer] Trimmer to bedside to discuss plan of care with patient/family. CM/SW role and care transitions discussed. Anticipated discharge plan discussed along with duration of care. CM/SW discussed patients right to make decisions in care. CM/SW work hours given. Patient lives: Admit/Transfer: POA/Emergency contact: Current/Previous Home Health: PCP/Follow-up Care: Current/Previous DME: Other Services: Employment Status: Areas of Concerns: Referral Needs: Education Needs: IMM/CLEANING given and signed (if applicable): Goal for discharge: CM/SW left business card at the bedside with contact information. Name and number was also written on the patients whiteboard. Patient verbalized understanding of discussion. CM will follow-up with ongoing discharge and transition of care needs. Addendum: 06/09/18 at 1042 by Taylor Nunez CM SOCIAL WORK INITIAL ASSESSMENT AIRFLIGHT ATTENDANTS SUPERVISOR SIMONA Armando83 [employer] Trimmer to bedside to discuss plan of care with patient/family. CM/SW role and care transitions discussed. Anticipated discharge plan discussed along with duration of care. CM/SW discussed patients right to make decisions in care. CM/SW work hours given. Patient lives: IN APARTMENT WITH SON Admit/Transfer: VIA ED FROM HOME POA/Emergency contact: DAUGHTER OSKAR YU Current/Previous Home Health: NONE PCP/Follow-up Care: JUWAN Current/Previous DME: NONE Other Services: NONE Employment Status: RETIRED Areas of Concerns: NONE Referral Needs: HAS STRONG FAMILY SUPPORT Education Needs: NONE IMM/CLEANING given and signed (if applicable): CLEANING Goal for discharge: RETURN HOME WITH FAMILY CM/SW left business card at the bedside with contact information. Name and number was also written on the patients whiteboard. Patient verbalized understanding of discussion. CM will follow-up with ongoing discharge and transition of care needs.
--- NOTE | 2018-06-09 11:48 | NUR ---
patient off the unit for MRI, Stable, no distress noted
--- NOTE | 2018-06-09 12:00 | NUR ---
1200 Received pt Identifier x2.In Radiology Nursing [place] #5. Here for MRI with sedation with Anesthesia. [facility] staff nurse call and House Supv. for Language line reinforcing bar setter. Anesthesia at bedside. Radiology Supv. Michela at bedside. Language line reinforcing bar setter noted and MD noted pt unable to consent ,altered mental function. Daughter , Linh Byrd phoned and arrived to consent pt for MRI of brain with Monitored Anesthesia. Forms Completed Pre vs 94% Ra, 137/67 -83-16 98.3(0) no pain voiceed 1000LR at bedside connected to floor iv #20 Flushed and checked ok.Transported MRI suite stable escorted by RN and x2 information technology architect with handoff given.
--- NOTE | 2018-06-09 13:35 | NUR ---
Patient was gone for a procedure at 1310. Will attempt tomorrow. Olga Mcmanus PTA/Supervising Vicky PEREZ Addendum: 06/09/18 at 1337 by Olga Mcmanus SEROLOGY TEACHER Amended: Links added.
--- NOTE | 2018-06-09 14:20 | NUR ---
patient back in room from MRI, Alert with no distress, denies any pain, call light in reach ,daughter at bed, continue monitoring
--- NOTE | 2018-06-09 15:55 | Diagnostic Imaging Report ---
Examination: MRI BRAIN WITHOUT CONTRAST History: Altered mental status. Confusion. Hypokalemia. Comparison studies: Head CT performed June 07, 2018 Technique: Sagittal T2; axial DWI, FLAIR, GRE or SWI, T1, Coronal FLAIR. Intravenous contrast: None Findings: Scalp: No abnormal signal. No masses. Bone marrow: Normal in signal intensity. Brain volume: Mild volume loss. Ventricles: Normal in size and configuration. No hydrocephalus. Extra-axial spaces: No abnormalities. Parenchyma: There are patchy and punctate areas of T2/FLAIR hyperintensity in the periventricular and subcortical white matter, nonspecific. No masses, hemorrhage, acute or chronic vascular insults. Suprasellar and sellar region: No abnormalities. Craniocervical junction: No abnormalities. The foramen magnum is patent. No Chiari malformations. Vessels: Normal flow-voids in the arteries and sinuses. Additional findings:None. IMPRESSION: 1. No acute intracranial abnormalities, specifically, no acute infarct. 2. Mild chronic microvascular ischemic change and volume loss. Signed by: Dr. Vicky Cole M.D. on 06/09/2018 3:52 PM
[2018-06-09] MEDS ORDERED: MIDAZOLAM HCL 2 MG/2 ML VIAL ONE (16:09)
[2018-06-09] MEDS ORDERED: FENTANYL CITRATE/PF 100MCG/2 ML INJ ONE (16:09)
[2018-06-09] MEDS: AMLODIPINE BESYLATE 5 MG TAB PO SCH (16:48)
--- NOTE | 2018-06-09 18:39 | NUR ---
patient resting in bed, assisted her walk to restroom, no c/o any pain, no SOB, ate dinner well, no distress noted, family at bed side
--- NOTE | 2018-06-09 19:10 | NUR ---
REPORT RECEIVED FROM OFF GOING NURSE, PT RESTING IN BED ALERT, NO DISTRESS NOTED, BED ALARM ACTIVATED, BED LOCKED AND LOW, FAMILY AT BEDSIDE, CALL LIGHT IN REACH, INSTRUCTED TO CALL WITH NEEDS
[2018-06-09] MEDS: SERTRALINE HCL 50 MG TAB PO SCH (20:15)
[2018-06-10] VITALS (8 sets, daily range): BP systolic 115–145; BP diastolic 55–66
[2018-06-10] MEDS: LEVOTHYROXINE SODIUM 50 MCG TAB PO SCH (05:10)
--- NOTE | 2018-06-10 05:11 | NUR ---
PT RESTING IN BED ALERT, NO DISTRESS NOTED, NO NEEDS VOICED, CALL LIGHT IN REACH, BED ALARM ACTIVATED, INSTRUCTED TO CALL WITH NEEDS
[2018-06-10] MEDS: FAMOTIDINE 20 MG TAB PO SCH ×2 (08:21→16:48)
[2018-06-10] MEDS: LAMOTRIGINE 100 MG TAB PO SCH ×2 (08:22→16:47)
[2018-06-10] MEDS: LOSARTAN POTASSIUM 100 MG TAB PO SCH (08:22)
[2018-06-10] MEDS: PANTOPRAZOLE SOD 40 MG TABEC PO SCH (08:22)
--- NOTE | 2018-06-10 08:35 | NUR ---
patient resting up in bed, not in any distress, call light in reach
--- NOTE | 2018-06-10 08:55 | NUR ---
Met with Dr. Cynthia Helm to discuss pt status. Notified him pt does meet inpatient status, if he agrees.
[2018-06-10 12:41] LABS: FERRITIN 129.66 ng/mL (4.63-204.00)
[2018-06-10] MEDS: GABAPENTIN 100 MG CAP PO SCH (16:47)
[2018-06-10] MEDS: AMLODIPINE BESYLATE 5 MG TAB PO SCH (16:48)
--- NOTE | 2018-06-10 18:50 | NUR ---
patient resting up in bed, denies any pain,not in any distress, family at bed side
[2018-06-10] MEDS: SERTRALINE HCL 50 MG TAB PO SCH (20:16)
[2018-06-11] VITALS (8 sets, daily range): BP systolic 116–140; BP diastolic 56–72
[2018-06-11] MEDS: LEVOTHYROXINE SODIUM 50 MCG TAB PO SCH (05:00)
--- NOTE | 2018-06-11 07:00 | NUR ---
Resting in bed, side rails upx2, call light within reach, bed alarm on. Resting with eyes closed. Arousable to verabal stimuli. Respirations even and unlabored. Will continue to monitor.
[2018-06-11] MEDS: PANTOPRAZOLE SOD 40 MG TABEC PO SCH (08:08)
[2018-06-11] MEDS: FAMOTIDINE 20 MG TAB PO SCH ×2 (08:08→15:53)
[2018-06-11] MEDS: LAMOTRIGINE 100 MG TAB PO SCH ×2 (08:08→15:53)
[2018-06-11] MEDS: LOSARTAN POTASSIUM 100 MG TAB PO SCH (08:08)
[2018-06-11] MEDS: GABAPENTIN 100 MG CAP PO SCH ×2 (08:08→15:53)
--- NOTE | 2018-06-11 11:37 | NUR ---
paged Dr.Qureshi Walsh to remind of consult
[2018-06-11] MEDS ORDERED: KETOROLAC TROMETHAMINE 30 MG/ML VIAL IV ONE (15:30)
[2018-06-11] MEDS: AMLODIPINE BESYLATE 5 MG TAB PO SCH (15:53)
[2018-06-11] MEDS: GUAIFENESIN/CODEINE 10 ML CUP PO PRN (15:53)
--- NOTE | 2018-06-11 15:57 | Diagnostic Imaging Report ---
BILATERAL KNEES - 3 Images EACH HISTORY: Bilateral knee pain, weakness, altered mental status COMPARISON: None available. FINDINGS: Bones: No acute displaced fracture. No aggressive osseous lesion. Bilateral tricompartmental marginal osteophytosis. Joints: Mild right medial compartment narrowing. Moderate left medial compartment narrowing. Soft tissues: A 1.8 x 0.9 cm ossification projects anterior to the left tibiotalar joint on the lateral view, which may right reflect an ossified body or heterotopic ossification within Hoffa's fat. IMPRESSION: 1. No acute radiographic abnormality. 2. Moderate left and mild right medial compartment predominant tricompartmental osteoarthrosis. Signed by: Dr. Minh Brian D.O., M.M.M. on 06/11/2018 3:54 PM
--- NOTE | 2018-06-11 17:26 | Diagnostic Imaging Report ---
Exam: Lumbar spine MRI without contrast Indication: Bilateral lower extremity paresthesia Comparisons: None Technique: Sagittal T1, T2 and IR, axial T2 with and without fat sat and axial spin density oblique Intravenous contrast: None Findings: Number of lumbar vertebral bodies: 5. Of note, there is a partially formed intervertebral disc at S1-S2. Alignment: Leftward convex curvature of the thoracolumbar junction centered at L1. Soft tissues: No T2 hyperintense inflammatory changes . Paraspinal muscles: Mild fatty infiltration. Lower thoracic cord: Normal in size and signal. The tip of the conus is at L1-L2. Cauda equina:No masses. No arachnoiditis . Vertebrae: Slight compression deformity of the central T2 vertebral body with T2/STIR hyperintensity and T1 hypointensity within the superior aspect of the L2 vertebral body. A few curvilinear T1 and T2 hypointense lines along the anterior and superior aspect of the vertebra. No abnormal convexity or paraspinal soft tissue mass. No significant height loss or retropulsion. Degenerative changes: Multilevel epidural lipomatosis. L1-L2 Mildly degenerated disc. Asymmetric to the right disc bulge, superimposed subarticular extrusion (series 7, image 10), and bilateral facet hypertrophy results in moderate right foraminal stenosis. Patent spinal canal and left neural foramen. L2-L3: Mildly degenerated disc. Buckling of the ligamentum flavum and bilateral facet hypertrophy results in mild posterolateral indentation of the thecal sac. Patent neural foramina. L3-L4: Mildly degenerated disc. Asymmetric to the right disc bulge, buckling of the ligamentum flavum, and bilateral facet hypertrophy results in mild canal and mild right foraminal stenosis. Patent left neural foramen. L4-L5: Mildly degenerated disc. Asymmetric to the left disc bulge, buckling of the ligamentum flavum, and bilateral facet hypertrophy results in moderate canal stenosis, abutment of the descending L5 nerve root within the left lateral recess, and moderate left foraminal stenosis. Patent right neural foramen. L5-S1: Mildly degenerated disc with chronic endplate changes. Asymmetric to the left disc bulge, buckling of the ligamentum flavum, and bilateral facet hypertrophy results in mild canal and moderate right/severe left foraminal stenoses. Partially visualized sacrum: None. IMPRESSION: 1. Acute/subacute compression fracture of the L2 vertebral body superior endplate with minimal height loss and no significant retropulsion. 2. Moderate degenerative canal stenosis at L4-L5 and varying degrees of foraminal stenoses including: moderate right at L1-L2, moderate left at L4-L5, and moderate right/severe left at L5-S1. 3. Additional findings: Degenerated disks and facet arthroses throughout the lumbar spine and abutment of the descending L5 nerve root within the lateral recess at L4-L5. A preliminary report was provided by Dr. Lopez on 06/11/2018 5:25 PM. Signed by: DR Cornel Dawkins M.D. on 06/11/2018 7:39 PM
--- NOTE | 2018-06-11 18:10 | NUR ---
Paged Dr. Alicja Marie to notify of MRI results. Awaiting for call back
--- NOTE | 2018-06-11 18:58 | NUR ---
L aware of lumbar spine MRI. No new orders. Report given to oncoming nurse of patients status. Patient resting in bed. No s/s of acute distress noted. Family member at bedside
[2018-06-11] MEDS: SERTRALINE HCL 50 MG TAB PO SCH (20:15)
[2018-06-12] MEDS: LEVOTHYROXINE SODIUM 50 MCG TAB PO SCH (05:26)
[2018-06-12 07:58] VITALS: BP 124/60
[2018-06-12] MEDS: FAMOTIDINE 20 MG TAB PO SCH ×2 (08:15→16:37)
[2018-06-12 08:40] VITALS: BP 124/60
[2018-06-12] MEDS: LOSARTAN POTASSIUM 100 MG TAB PO SCH (08:40)
[2018-06-12] MEDS: LAMOTRIGINE 100 MG TAB PO SCH ×2 (08:40→16:37)
[2018-06-12] MEDS: GABAPENTIN 100 MG CAP PO SCH ×2 (08:40→16:38)
[2018-06-12] MEDS: PANTOPRAZOLE SOD 40 MG TABEC PO SCH (08:40)
--- NOTE | 2018-06-12 08:40 | NUR ---
PT RECEIVED AMBULATING IN ROOM, TOLERATING WELL. AA/O X3, FORGETFUL, KAZAKH SPEAKING. NO C/O AT PRESENT. ASSESSMENT COMPLETE, VSS. DISCUSSED PLAN FOR THE DAY.
--- NOTE | 2018-06-12 11:10 | NUR ---
WOUND CARE CONSULT - INITIAL EVALUATION -Patient admitted from home with AMS, Hypokalemia and HTN. S/P fall with Bruising to Right Upper Arm, Right Hip, Right Flank and Knee. -DX: AMS, Hypokalemia, HTN. -HX: Bipolar Disorder, HTN, Hypothyroidism. -LABS: WBC4.29 HGB10.2 HCT31.3 ALB2.9 [id number] PATIENT VISIT: - Patient Singaporean speaking, calm and cooperative - Able to turn self - Denies wounds, rash, able to point out bruising to right arm, right hip and right flank areas. - S/P removal of infiltrated IV from right AC with redness. States it feels better once it was removed. - slight erythema noted and indurated. -Foreign Score 19 -[employer]co Mattress - Sacral clear, no redness, denies pain, - Bilateral Heels Clear, No redness, denies pain or discomfort. - Large bruising noted to right hip, right flank, right arm and knee. Denies pain from areas. - Spoke with nurse on shift. No other areas of concern at this time. IMPRESSION: No wounds identified. No rash identified. Will follow up if needed. Please indicate reason for consult with note at time of WC Consult. Addendum: 06/12/18 at 1126 by Yves Carias RN Amended: Links added.
--- NOTE | 2018-06-12 11:11 | NUR ---
Dr. Rodrigues, this patient did well today with RW in the bathroom and 200 feet in the halls without any loss of balance. Also practiced without device, but patient did best with RW. If you agree, please order one for her for home. Also, she states she is moving in with her daughter. I would recommend home health for further balance and safety work. Addendum: 06/12/18 at 1113 by Consuelo Brown PT Amended: Links added.
[2018-06-12 12:04] VITALS: BP 122/58
--- NOTE | 2018-06-12 13:59 | NUR ---
REPORT CALLED TO RM 287.
--- NOTE | 2018-06-12 14:13 | NUR ---
PT TRANSFERRED TO ROOM 287 WITH ALL BELONGINGS
--- NOTE | 2018-06-12 14:21 | NUR ---
PATIENT ARRIVED ON THE UNIT AT 1415 PER WHEELCHAIR FROM OBS RM 175. PATIENT IS AWAKE, ALERT TO SELF AND PLACE AT THIS TIME, AND IS IN STABLE CONDITION WITH NO S/S OF RESPIRATORY DISTRESS. NO PAIN VOICED. BRUISING NOTED TO RIGHT UPPER ARM, RIGHT FLANK AREA (POSTERIOR), AND RIGHT HIP AREA- PATIENT STATES SHE FELL AT HOME. BED ALARM APPLIED. DAUGHTER PRESENT IN ROOM. CALL LIGHT IS WITHIN REACH, INSTRUCTED TO CALL FOR ASSISTANCE NEEDED.
[2018-06-12 15:25] LABS: BASOPHILS % 0.2 % (0.0-1.0); EOSINOPHILS # (AUTO) 0.2 (0.0-0.4); EOSINOPHILS % 3.1 % (0.0-6.0); HEMATOCRIT 30.4 % (34.2-44.1); HEMOGLOBIN 9.9 g/dL (12.0-16.0); LYMPHOCYTES # (AUTO) 0.6 (1.0-3.2); LYMPHOCYTES % 9.9 % (18.0-39.1); MEAN CORPUSCULAR HEMOGLOBIN 30.3 pg (28-32); MEAN CORPUSCULAR HGB CONC 32.6 g/dL (31-35); MONOCYTES # (AUTO) 0.5 (0.2-0.8); MONOCYTES % 9.2 % (4.4-11.3); NEUTROPHILS # (AUTO) 4.5 (2.1-6.9); NEUTROPHILS % 76.9 % (38.7-80.0); PLATELET COUNT 138 x10e3/uL (140-360); RED BLOOD COUNT 3.27 x10e6/uL (3.6-5.1); RED CELL DISTRIBUTION WIDTH 14.9 % (11.7-14.4)
[2018-06-12 15:39] VITALS: BP 108/53
[2018-06-12 15:51] LABS: ALANINE AMINOTRANSFERASE 24 IU/L (0-55); ALBUMIN 2.9 g/dL (3.5-5.0); ALKALINE PHOSPHATASE 67 IU/L (40-150); ANION GAP 10.1 mmol/L (8-16); BLOOD UREA NITROGEN 13 mg/dL (7-26); BUN/CREATININE RATIO 16 (6-25); CALCIUM 8.2 mg/dL (8.4-10.2); CARBON DIOXIDE 28 mmol/L (22-29); CHLORIDE 97 mmol/L (98-107); CREATININE, SERUM 0.83 mg/dL (0.57-1.11); EST GLOMERULAR FILTRATION RATE > 60 ML/MIN (60-); GLUCOSE 110 mg/dL (74-118); POTASSIUM 4.1 mmol/L (3.5-5.1); SODIUM 131 mmol/L (136-145)
[2018-06-12 16:10] LABS: THYROID STIMULATING HORMONE 1.463 uIU/mL (0.350-4.940)
[2018-06-12] MEDS: AZITHROMYCIN 250 MG TAB PO SCH (16:38)
[2018-06-12] MEDS: AMLODIPINE BESYLATE 5 MG TAB PO SCH (16:38)
--- NOTE | 2018-06-12 18:13 | NUR ---
PATIENT AND DAUGHTER ASKED FOR TEMPERATURE TO BE TAKEN- ORAL TEMP TAKEN RESULT 98.4
--- NOTE | 2018-06-12 19:19 | NUR ---
PATIENT IS RESTING IN BED- IN STABLE CONDITION WITH NO S/S OF RESPIRATORY DISTRESS. NO PAIN VOICED. DAUGHTER PRESENT IN ROOM. CALL LIGHT IS WITHIN REACH, INSTRUCTED TO CALL FOR ASSISTANCE NEEDED. REPORT GIVEN TO ONCOMING NURSE.
--- NOTE | 2018-06-12 19:56 | NUR ---
RECEIVED PT IN BED AOX3 /RESPIRATIONS ARE EVEN AND UNLABORED ..PT DENIES PAIN .FAMILY AT THE BEDSIDE .CALL LIGHT WITH IN REACH .CONTINUE TO MONITOR
[2018-06-12 20:00] VITALS: BP 127/58
[2018-06-12] MEDS: SERTRALINE HCL 50 MG TAB PO SCH (20:42)
[2018-06-13] VITALS: BP 134/57
[2018-06-13 04:00] VITALS: BP 137/56
[2018-06-13] MEDS: LEVOTHYROXINE SODIUM 50 MCG TAB PO SCH (06:00)
--- NOTE | 2018-06-13 06:45 | NUR ---
handoff report rec'd during walking rounds. Pt awake, able to verbalize needs in albanian. NAD observed or reported.
--- NOTE | 2018-06-13 06:55 | NUR ---
PT RESTED DURING THE NIGHT .DENIES PAIN .CALL LIGHT WITH IN REACH .CONTINUE TO MONITOR
[2018-06-13] MEDS: FAMOTIDINE 20 MG TAB PO SCH ×2 (08:30→17:25)
[2018-06-13 08:55] VITALS: BP 146/52
[2018-06-13] MEDS: AZITHROMYCIN 250 MG TAB PO SCH (09:31)
[2018-06-13] MEDS: PANTOPRAZOLE SOD 40 MG TABEC PO SCH (09:31)
[2018-06-13] MEDS: LOSARTAN POTASSIUM 100 MG TAB PO SCH (09:31)
[2018-06-13] MEDS: GABAPENTIN 100 MG CAP PO SCH ×2 (09:31→17:25)
[2018-06-13] MEDS: LAMOTRIGINE 100 MG TAB PO SCH ×2 (09:31→17:25)
[2018-06-13 13:25] VITALS: BP 136/58
--- NOTE | 2018-06-13 15:49 | NUR ---
CM MET WITH PT'S DAUGHTER AND PT IN ROOM DTR [facility] [phone] CONFIRMED THAT PT IS GOING TO [facility] [address] [place] [address] IMM EXPLAINED AND GIVEN IN [place], ON CHART AND COPY TO PT'S DTR CHOICE LETTER SIGNED AND ON CHART FOR [facility] TO PT'S DTR 3 IN 1 ORDERED FAXED TO [facility], CONFIRMATION REC'D PH [phone] FAX [phone] SPOKE WITH [facility] ; NOTIFIED OF DC 06/14 AND ASKED TO DELIVER TO ABOVE ADDRESS GAVE PT'S DAUGHTER MY CARD FOR QUESTIONS/CONCERNS PROVIDED PT WITH R.W. TO TAKE HOME
[2018-06-13 16:29] VITALS: BP 107/52
--- NOTE | 2018-06-13 17:00 | Consultation ---
DATE OF CONSULTATION: June 13, 2018 PSYCHIATRIC CONSULTATION REASON FOR CONSULTATION: To evaluate patient's history of bipolar and meds management. HISTORY OF PRESENTING ILLNESS: The patient is a 77-year-old female admitted to the hospital for altered mental status and hypokalemia. Psychiatric consultation is called to evaluate patient's psychosis and meds. As per note from Neurology, patient had history of hypertension, thyroid, GERD, bipolar disorder. She reported "shakiness" of her arms and legs during the past one year. However, for the last two days she has been more confused, forgetful when she walked into the room, unable to remember what she was there for. She has been taking Zoloft and Lamictal for bipolar. Neurology believes that the movement may be due to restless legs syndrome. Upon evaluation today, patient is found to be in the room with her family members. Patient is alert, awake and oriented to self, place and the year. She is able to answer questions appropriately. She appears to be restless with her upper and lower extremities. Her hands are constantly fixing the bedsheet. However, there are periods of calm where she does not move her hands. The movement appears to be nonrhythmic and purposeful. Patient denies anxiety or depression. She denies any hallucination. She denies any problems with her appetite. She denies any suicidal ideation. Patient does not appear to be delusional or paranoid. She is calm and not agitated. As per family members, patient has been confused, forgetful, anxious. She was found to have been sick. Her anxiety actually started after her , which was in 1978. She has been admitted to inpatient psychiatry three times in the past. She at times leaves the house and forgets where she is. For the past few days she has been urinating on herself, forgetting to ask for help. She appears to be forgetting how to feed herself. She is not sleeping as per her daughter and gets her night and day mixed up. PAST PSYCHIATRIC HISTORY: Patient has been diagnosed with bipolar. She has never attempted suicide in the past. She does not drink alcohol or use any drugs. FAMILY HISTORY: Denies. SOCIAL HISTORY: Patient lives with her daughter. MENTAL STATUS EXAMINATION: The patient is an elderly female. She is alert, awake and oriented to situation. Her mood is anxious. She denies any suicidal or homicidal ideations. She denies any hallucination. Thought process is concrete. She does not elicit paranoia or delusional thinking. Insight and judgment are fair. Memory appears to be grossly intact. CURRENT MEDICATIONS 1. Erythromycin. 2. Neurontin 100 mg p.o. b.i.d. 3. Lamictal 100 mg p.o. b.i.d. 4. Pantoprazole. 5. Losartan. 6. Famotidine. 7. Levothyroxine. 8. Zoloft 50 mg p.o. nightly. 9. Amlodipine. 10. Perphenazine. CURRENT LAB: WBC is 5.78, RBC 3.27, hemoglobin 9.1, hematocrit 30.4, platelets 138. CHEMISTRY: Sodium 131, potassium 4.1, chloride 97, CO2 28, BUN 13, creatinine is 0.83. AST 21, ALT 24. TSH 1.4. B12 is 1031. B1 is 201. CT of brain and MRI of brain showed no acute findings. UA showed no growth. ASSESSMENT 1. Adjustment disorder with mixed mood anxiety. 2. History of bipolar. 3. Rule out dementia. PLAN 1. Continue Zoloft 50 mg p.o. nightly. 2. Add Klonopin 0.25 mg p.o. b.i.d. 3. Continue with Lamictal 100 mg p.o. b.i.d. 4. Continue with Neurontin 100 mg p.o. b.i.d. 5. Monitor for mood. 6. Supportive therapy. 7. Recommend followup with outpatient psychiatry. Thank you for this consultation. Dictated by: STEFF Leo Job#: [id number] EV
[2018-06-13] MEDS: CLONAZEPAM 0.5 MG TAB PO SCH (17:25)
[2018-06-13] MEDS: AMLODIPINE BESYLATE 5 MG TAB PO SCH (17:25)
--- NOTE | 2018-06-13 19:43 | NUR ---
RECEIVED PT SITTING AT THE SIDE OF THE BED .NO C/O PAIN .FAMILY AT THE BEDSIDE .CALL LIGHT WITH IN REACH .CONTINUE TO MONITOR
[2018-06-13 20:00] VITALS: BP 127/56
[2018-06-13] MEDS: SERTRALINE HCL 50 MG TAB PO SCH (21:22)
[2018-06-13] MEDS: GUAIFENESIN/CODEINE 10 ML CUP PO PRN (21:35)
[2018-06-14] VITALS: BP 149/65
[2018-06-14 04:00] VITALS: BP 125/59
--- NOTE | 2018-06-14 06:31 | NUR ---
NO ACUTE DISTRESS NOTED .DENIES PAIN .CALL LIGHT WITH IN REACH .CONTINUE TO MONITOR
[2018-06-14] MEDS: LEVOTHYROXINE SODIUM 50 MCG TAB PO SCH (06:41)
--- NOTE | 2018-06-14 07:04 | NUR ---
REPORT GIVEN TO THE ON COMING NURSE
--- NOTE | 2018-06-14 07:35 | NUR ---
PT IN BED SLEEPING NO DISTRESS NOTED,DENIES PAIN
[2018-06-14 08:07] VITALS: BP 135/63
[2018-06-14] MEDS: FAMOTIDINE 20 MG TAB PO SCH (08:30)
[2018-06-14] MEDS: CLONAZEPAM 0.5 MG TAB PO SCH (09:00)
[2018-06-14] MEDS: LOSARTAN POTASSIUM 100 MG TAB PO SCH (09:00)
[2018-06-14] MEDS: PANTOPRAZOLE SOD 40 MG TABEC PO SCH (09:00)
[2018-06-14] MEDS: LAMOTRIGINE 100 MG TAB PO SCH (09:00)
[2018-06-14] MEDS: GABAPENTIN 100 MG CAP PO SCH (09:00)
[2018-06-14] MEDS: AZITHROMYCIN 250 MG TAB PO SCH (09:00)
[2018-06-14] MEDS: AMLODIPINE BESYLATE 5 MG TAB PO SCH (10:04)
--- NOTE | 2018-06-14 10:46 | Discharge Summary ---
DISCHARGE DIAGNOSES 1. Metabolic encephalopathy. 2. Restless leg syndrome. 3. Degenerative arthritis of the lumbosacral spine. 4. Dyskinesia, unspecified. 5. Hypothyroidism. 6. Anemia, unspecified. CONSULTING PHYSICIANS 1. Dr. Alejandro of psychiatry. 2. 2 Dr. Rodrigues of neurology. RADIOGRAPHIC STUDIES 1. Plain x-rays of the knees show bilateral osteoarthritis. 2. MRI of the lumbosacral spine shows subacute compression fracture of the vertebral body with minimal height loss and degenerative disease in L4-S1. 3. MRI of the brain shows no acute abnormalities. There was some chronic microvascular changes. 4. CT scan of the head shows no acute cranial abnormality. 5. Chest x-ray shows no acute disease. DISCHARGE MEDICATIONS 1. Amlodipine 5 mg p.o. daily. 2. Lamictal 100 mg p.o. b.i.d. 3. Levothyroxine 50 mcg p.o. daily. 4. Losartan 100 mg daily. 5. Omeprazole 40 mg p.o. daily. 6. Ranitidine 150 mg p.o. daily. 7. Sertraline 50 mg p.o. daily. 8. Naprosyn 375 mg p.o. b.i.d. p.r.n. 9. Neurontin 100 mg p.o. b.i.d. 10. Clonazepam 0.25 mg 1 p.o. q.12 h. p.r.n. HISTORY OF PRESENT ILLNESS: The patient is a 77-year-old woman. She has a history of manic depressive illness. She had some increased falling over 6 to 12 months, as well as some abnormal movements of her limbs. She went to [facility] in April with pneumonia and was hospitalized for 3 days. Since that time, she reports worsening of uncontrollable movements in the upper and lower extremities along with more frequent falling. HOSPITAL COURSE: The patient was admitted. She had a CT scan of the head that was normal. She was placed on telemetry and evaluated by neurology. She was felt to have dyskinesia possibly related to her psychiatric medicines or possibly related to restless leg syndrome. Patient was subsequently seen by psychiatry. She received some Neurontin, as well as some low-dose Ativan. Her abnormal movements seemed to improve. Her hospital course was further complicated by lower back pain and knee pain. Evaluation showed bilateral osteoarthritis of the knees, as well as degenerative arthritis of the lumbosacral spine. She received physical therapy and was walking 200 feet on discharge. She felt much better and was eager to go home. DISPOSITION: Patient will be discharged home. She will follow up with her primary physician, as well as with Dr. Rodrigues of neurology and Dr. Alejandro of psychiatry. CECILIA TESFAYE MD Job#: [id number] RI cc:YUNI BLACK MD
--- NOTE | 2018-06-14 11:15 | NUR ---
pt discharged home ,iv dcd without redness or swelling,prescriptions and instructions given copy on chart.transported to [facility] via w/c
== END 2018-06-14 11:43 | disposition home or self-care (01) | DRG 71 ==
LOC: FSED 15:10 → ERHOLD 19:55 → IMCU 20:55 → OBSVTOIN 06-10 08:48 → MED/SURG3 06-12 14:15
PROVIDERS: ADMIT Internal Medicine Critical Care Medicine; ATTEND Internal Medicine Critical Care Medicine
DX: G93.41 Metabolic encephalopathy (principal); F31.81 Bipolar II disorder; E87.6 Hypokalemia; E03.9 Hypothyroidism, unspecified; I10 Essential (primary) hypertension; F43.23 Adjustment disorder with mixed anxiety and depressed mood; F03.90 Unspecified dementia, unspecified severity, without behavioral disturbance, psychotic disturbance, mood disturbance, and anxiety; Z91.14 Patient's other noncompliance with medication regimen; G25.81 Restless legs syndrome; M47.9 Spondylosis, unspecified; D64.9 Anemia, unspecified; G24.9 Dystonia, unspecified; M17.0 Bilateral primary osteoarthritis of knee; G24.01 Drug induced subacute dyskinesia
CPT/HCPCS: 36415; 70450; 70551; 71045; 72148; 80048; 80053; 81001; 81003; 82140; 82550; 82553; 82607; 82728; 83540; 83735; 84425; 84436; 84443; 84466; 84479; 84484; 85025; 86592; 87040; 87086; 93005; 97139; 99284; G0378; J1200; J1885; J2060; J2250; J7121

== ENCOUNTER 2018-12-02 11:07 | Emergency (ER) | payer MEDICARE, OTHER ==
[~2018-12-02] VITALS: Ht 152.4 cm; Wt 77.1 kg
[~2018-12-02 11:07] MED LIST: CLOTRIMAZOLE-BE15 GM TOP; LAMOTRIGINE100 MG PO; LEVOTHYROXINE50 MCG PO; LOSARTAN POTAS100 MG PO; NAPROXEN250 MG PO; NORVASC5 MG PO; OMEPRAZOLE40 MG; RANITIDINE HCL150 M1; SERTRALINE HCL50 MG PO
--- OUTSIDE RECORDS SUMMARY | 2018-12-02 11:10 | XMS REPORT | Continuity of Care Document ---
Author Author [employer] Organization [employer] Address Unknown Phone Unavailable Care Team Providers Care Garage Door Service Technician Name Role Phone netomat Information Exchange Unavailable Unavailable Problems Problem Status Onset Date Classification Date Reported Comments Source PNA Active 05/19/2018 [facility] FLU A Active 05/19/2018 [facility] UNK Active 10/13/2016 [facility] Z12.31 - ENCNTR SCREEN MAMMOGRAM FOR MA Active 04/19/2016 [facility] [place] 553.3/530.81/562.10 Active 03/10/2011 [facility] OTHER Active 03/10/2011 [facility] ABNORMAL LIVER ENZYMES Active 02/10/2011 [facility] 790.4/530.81/536.8 Active 02/04/2011 [facility] Chest pain Active Problem 06/03/2018 Thiago Chávez Pure hypercholesterolemia Active Problem 06/03/2018 Thiago Chávez Diabetes mellitus Active Problem 06/03/2018 Thiago Chávez Exercise-induced shortness of breath Active Problem 06/03/2018 Thiago Chávez Varicose veins of lower extremities with other complications Active Problem 06/03/2018 Thaigo Chávez Obesity Active Diagnosis 06/03/2018 Thiago Chávez Venous insufficiency Active Problem 06/03/2018 Thiago Chávez Benign hypertensive heart disease Active Problem 06/03/2018 Thiago Chávez Hypothyroid Active Problem 06/03/2018 Thiago Chávez Status post ablation of incompetent vein using laser Active Problem 06/03/2018 Thiago Chávez Left arm numbness Active Problem 06/03/2018 Thiago Chávez Arteriosclerosis of both carotid arteries Active Problem 06/03/2018 Mohamed Greg Chávez Obesity Active Diagnosis 12/13/2015 Mohgeoff Chávez Varicose veins of leg with swelling Active Problem 12/13/2015 Thiago Chávez Diabetes mellitus Active Diagnosis 12/13/2015 Mohamed Greg Chávez Chronic venous insufficiency Active Problem 03/13/2014 Thiago Chávez Exercise-induced shortness of breath Active Problem 12/13/2015 Thiago Chávez Cardiac pain Active Problem 12/13/2015 Thiago Chávez Tricuspid valve abscess Active Problem 12/13/2015 Thiago Chávez Hypercholesterolemia Active Problem 12/13/2015 Thiago Chávez Benign hypertensive heart disease Active Problem 12/13/2015 Thiago Chávez Mitral valve disorder Active Problem 12/13/2015 Thiago Chávez Venous insufficiency (peripheral) Active Problem 12/13/2015 Thiago Chávez Varicose veins of lower extremities with complications Active Problem 12/13/2015 Thiago Chávez Generalized osteoarthrosis Active Problem 12/13/2015 Thiago Chávez Hypothyroidism Active Diagnosis 12/13/2015 Thiago Chávez Varicose veins of lower extremities with other complications Active Problem 12/13/2015 Thiago Chávez Chronic cerebrospinal venous insufficiency Active Problem 04/13/2014 Thiago Chávez Final: Encounter for screening mammogram for malignant neoplasm of breast 04/24/2017 [facility] [place] Acid reflux Active Problem 04/24/2017 [facility] [place] discharge follow-up Active Diagnosis 07/14/2018 [facility] Pneumonia of lower lobe due to infectious organism, unspecified laterality Active Diagnosis 07/14/2018 [facility] PNEUMONIA, UNSPECIFIED ORGANISM Active [facility] FLU DUE TO OTH IDENT INFLUENZA VIRUS W O Active [facility] Medications Medication Details Route Status Patient Instructions Ordering Provider Order Date Source Levaquin 1 tablet Orally Active 500 mg Orally Once a day Ghebranious 05/31/2018 [facility] Mucinex DM 1 tablet as needed Orally Active 30-600 MG Orally every 12 hrs Ghebranious 05/31/2018 [facility] Hydralazine 10 mg, Route: IVP, Q20Min, Dosing Weight 77.301, kg, PRN Elevated BP, Start date: 11/04/16 8:33:00 CDT, Duration: 2 doses or times, Stop date: Limited # of times Inactive 11/04/2016 [facility] Labetalol 10 mg, Route: IVP, Q5Min, Dosing Weight 77.301, kg, PRN Elevated BP, Start date: 11/04/16 8:33:00 CDT, Duration: 5 doses or times, Stop date: Limited # of times Inactive 11/04/2016 [facility] esmolol 10 mg, Route: IVP, Q5Min, Dosing Weight 77.301, kg, PRN Other -See Comment, Start date: 11/04/16 8:33:00 CDT, Duration: 5 doses or times, Stop date: Limited # of times Inactive 11/04/2016 [facility] Acetaminophen 1,000 mg, Route: PO, Drug form: TAB, ONCE, Dosing Weight 77.301, kg, PRN Pain Score 1-3, Start date: 11/04/16 8:33:00 CDT, Duration: 1 doses or times, Stop date: Limited # of times Inactive 11/04/2016 [facility] Oxycodone 5 mg, Route: PO, Drug form: TAB, Q4H, Dosing Weight 77.301, kg, PRN Pain Score 4-6, Start date: 11/04/16 8:33:00 CDT, Duration: 30 day, Stop date: 12/04/16 8:32:00 CDT Inactive 11/04/2016 [facility] Naloxone 0.4 mg, Route: IVP, Q2MIN, Dosing Weight 77.301, kg, PRN Narcotic Reversal, Start date: 11/04/16 8:33:00 CDT, Duration: 8 doses or times, Stop date: Limited # of times Inactive 11/04/2016 [facility] Albuterol 0.83 MG/ML Inhalant Solution 2.49 mg, Route: NEB, Q20Min, Dosing Weight 77.301, kg, PRN Wheezing, Priority: STAT, Start date: 11/04/16 8:33:00 CDT, Duration: 30 day, Stop date: 12/04/16 8:32:00 CDT Inactive 11/04/2016 [facility] Hydromorphone 0.5 mg, Route: IVP, Q5Min, Dosing Weight 77.301, kg, PRN Pain Score 7-10, Start date: 11/04/16 8:33:00 CDT, Duration: 4 doses or times, Stop date: Limited # of times Inactive 11/04/2016 [facility] Flumazenil 0.2 mg, Route: IVP, PRN, Dosing Weight 77.301, kg, PRN Benzodiazepine Reversal, Initial dose, Start date: 11/04/16 8:33:00 CDT, Duration: 30 day, Stop date: 12/04/16 8:32:00 CDT Inactive 11/04/2016 [facility] Ondansetron 4 mg, Route: IVP, ONCE, Dosing Weight 77.301, kg, PRN Nausea & Vomiting, Start date: 11/04/16 8:33:00 CDT Inactive 11/04/2016 [facility] Promethazine 6.25 mg, Route: IVPB, ONCE, Dosing Weight 77.301, kg, PRN Nausea & Vomiting, Start date: 11/04/16 8:33:00 CDT Inactive 11/04/2016 [facility] Diphenhydramine 12.5 mg, Route: IVP, Drug form: INJ, Q6H, Dosing Weight 77.301, kg, PRN Itching, Start date: 11/04/16 8:33:00 CDT, Duration: 30 day, Stop date: 12/04/16 8:32:00 CDT Inactive 11/04/2016 [facility] Meperidine 12.5 mg, Route: IVP, Q30Min, Dosing Weight 77.301, kg, PRN Other -See Comment, For shivering, Start date: 11/04/16 8:33:00 CDT, Duration: 2 doses or times, Stop date: Limited # of times Inactive 11/04/2016 [facility] Calcium Chloride 0.0014 MEQ/ML / Potassium Chloride 0.004 MEQ/ML / Sodium Chloride 0.103 MEQ/ML / Sodium Lactate 0.028 MEQ/ML Injectable Solution 1,000 mL, Rate: 125 ml/hr, Infuse over: 8 hr, Route: IV, Dosing Weight 77.301 kg, Total Volume: 1,000, Start date: 11/04/16 8:33:00 CDT, Duration: 30 day, Stop date: 12/04/16 8:32:00 CDT Inactive 11/04/2016 [facility] esmolol (ANES) Route: IV, Drug form: INJ, ONCE, Stop date: 11/04/16 8:21:00 CDT Inactive 11/04/2016 [facility] lidocaine (ANES) Route: IV, Drug form: INJ, ONCE, Stop date: 11/04/16 8:12:00 CDT Inactive 11/04/2016 [facility] fentaNYL (ANES) Route: IV, Drug form: INJ, ONCE, Stop date: 11/04/16 8:12:00 CDT Inactive 11/04/2016 [facility] ceFAZolin (ANES) Route: IV, Drug form: INJ, ONCE, Stop date: 11/04/16 8:12:00 CDT Inactive 11/04/2016 [facility] midazolam (ANES) Route: IV, Drug form: SOLN, ONCE, Stop date: 11/04/16 8:12:00 CDT Inactive 11/04/2016 [facility] acetaminophen (ANES) (ANES) Route: IV, Drug form: INJ, Start date: 11/04/16 7:52:00 CDT, Stop date: 11/04/16 8:52:00 CDT Inactive 11/04/2016 [facility] Albuterol 0.833 MG/ML / Ipratropium [place] 0.167 MG/ML Inhalant Solution 3 mL, Route: NEB, Dosing Weight 77.301, kg, ONCE, STAT, Start date: 11/04/16 7:39:00 CDT, Stop date: 11/04/16 7:39:00 CDT Inactive 11/04/2016 [facility] Calcium Chloride 0.0014 MEQ/ML / Potassium Chloride 0.004 MEQ/ML / Sodium Chloride 0.103 MEQ/ML / Sodium Lactate 0.028 MEQ/ML Injectable Solution 1,000 mL, Rate: 25 ml/hr, Infuse over: 40 hr, Route: IV, Dosing Weight 77.301 kg, Total Volume: 1,000, Start date: 11/04/16 7:39:00 CDT, Duration: 30 day, Stop date: 12/04/16 7:38:00 CDT Inactive 11/04/2016 [facility] propofol (ANES) (ANES) Route: IV, Drug form: INJ, Start date: 11/04/16 7:30:00 CDT, Stop date: 11/04/16 8:30:00 CDT Inactive 11/04/2016 [facility] LR 1000 mL INJ (ANES) Route: IV, Total Volume: 1,000, Start date: 11/04/16 7:25:00 CDT, Stop date: 11/04/16 8:25:00 CDT Inactive 11/04/2016 [facility] Lamotrigine 3 tablets Orally Active 25 MG Orally Twice a day Alejandropatel Chávez Simvastatin 1 tablet Orally Active 20 mg Orally Once a day Alejandropatel Chávez Levothyroxine Sodium 1 tablet Orally Active 50 MCG Orally Once a day Alejandropatel Chávez Atenolol 1 tablet once a day orally 90 days Orally Active 25 MG Orally Once a day Alejandropatel Chávez Sertraline HCl 1 tablet Orally Active 50 mg Orally Once a day Alejandropatel Chávez Metformin HCl 1 tablet Orally Active 500 mg Orally once a day Alejandropatel Chávez Tramadol HCl 1 tablet Orally Active 50 mg Orally as needed (prn) [facility] Losartan Potassium 1 tablet Orally Active 25 MG Orally Once a day Alejandropatel Chávez Atenolol 1 tablet once a day orally 90 days Orally Active 25 MG Orally Once a day Alejandropatel Chávez Lamotrigine 3 tablets Orally Active 25 MG Orally Twice a day Alejandropatel Chávez Simvastatin 1 tablet Orally Active 20 mg Orally [facility] Thiago Ch[facility]vez Tramadol HCl 1 tablet Orally Active 50 mg Orally as needed (prn) [facility] Thiago Allenpatel Losartan Potassium 1 tablet Orally Active 25 MG Orally Once a day Alejandropatel Chávez Levothyroxine Sodium 1 tablet Orally Active 50 MCG Orally Once a day Alejandropatel Chávez Duloxetine HCl 1 capsule Orally Active 60 MG Orally Once a [facility] Thiago Allenpatel Naproxen 1 tablet Orally Active 500 mg Orally as needed (prn) [facility] Thiago Allenpatel Abilify 1/2 half tablet Orally Active 5 MG Orally Once a day Alejandropatel Allenpatel Divalproex Sodium 2 tablet Orally Active 500 mg Orally once a day [facility] Thiago Allenpatel Nexium 1 capsule Orally Active 40 MG Orally Once a day [facility] Thiago Chávez Sertraline HCl 1 tablet Orally Active 50 mg Orally Once a day [facility] Thiago Chávez Omeprazole 1 capsule Orally Active 40 mg Orally Once a day [facility] Levothyroxine Sodium 1 tablet on an empty stomach in the morning Orally Active 50 MCG Orally Once a day [facility] Losartan Potassium 1 tablet Orally Active 100 MG Orally Once a day [facility] Naproxen 1 tablet with food or milk as needed Orally Active 375 MG Orally every 12 hrs [facility] Dextromethorphan-Guaifenesin 10 ml as needed Orally Active 10- 100 MG/5ML Orally every [address] [facility] Lamotrigine 1 tablet Orally Active 200 MG Orally Twice a day [facility] Levaquin 1 tablet Orally Active 500 mg Orally Once a day [facility] Acetaminophen 1 tablet as needed Orally Active 325 MG Orally every [address] [facility] Amlodipine Besylate 1 tablet Orally Active 5 MG Orally Once a day if SBP >135 [facility] PredniSONE as directed Orally Active 10 mg Orally 2 tablets x3 dats, 1 tablet x3 days and 1/2 tablet for 3 days [facility] Oseltamivir Phosphate 1 capsule Orally Active 75 mg Orally every twelve hours [facility] Ranitidine HCl 1 capsule at bedtime Orally Active 150 MG Orally Once a day [facility] Allergies, Adverse Reactions, Alerts Substance Category Reaction Severity Reaction type Status Date Reported Comments Source N.K.D.A. Adverse Reaction Info Not Available Adverse Reaction Active 05/31/2018 [facility] Immunizations No Data Provided for This Section Results Order Name Results Value Reference Range Date Interpretation Comments Source CHEM PANEL Glucose Lvl 76 70 - 99 11/03/2016 [facility] HEMATOLOGY Monocytes # 0.5 0.0 - 0.8 11/03/2016 [facility] HEMATOLOGY Eosinophils # 0.2 0.0 - 0.5 11/03/2016 [facility] HEMATOLOGY Lymphocytes # 1.5 1.0 - 5.5 11/03/2016 [facility] HEMATOLOGY Segs-Bands # 4.1 1.5 - 8.1 11/03/2016 [facility] HEMATOLOGY Basophils # 0.1 0.0 - 0.2 11/03/2016 [facility] HEMATOLOGY Monocytes 8.2 2.0 - 12.0 11/03/2016 [facility] Lymphocytes 24.0 20.0 - 40.0 11/03/2016 [facility] Segs 63.5 45.0 - 75.0 11/03/2016 [facility] Plt Morph Normal (11/03/16 3:06 PM) 11/03/2016 [facility] Basophils 1.1 0.0 - 1.0 11/03/2016 [facility] Eosinophils 3.2 0.0 - 4.0 11/03/2016 [facility] RBC Morph Normal (11/03/16 3:06 PM) 11/03/2016 [facility] WBC 6.4 3.7 - 10.4 11/03/2016 [facility] MCV 82.0 80.0 - 98.0 11/03/2016 [facility] Platelet 171 133 - 450 11/03/2016 [facility] MCH 26.9 27.0 - 31.0 11/03/2016 [facility] RDW 14.9 11.5 - 14.5 11/03/2016 [facility] MCHC 32.8 32.0 - 36.0 11/03/2016 [facility] Hgb 10.8 12.0 - 16.0 11/03/2016 [facility] Hct 32.8 36.0 - 48.0 11/03/2016 [facility] RBC 4.00 4.20 - 5.40 11/03/2016 [facility] MPV 8.0 7.4 - 10.4 11/03/2016 [facility] Pathology Reports No Data Provided for This Section Diagnostic Reports Report Value Date Source Chest 2 views DX Study: Chest 2 views DX 05/20/2018 1:39 AM MICROBIOLOGICAL ANALYST Patient Name: LUCIEN VELOZ MR: [id number] : 1940; Age: 77 years y/o Female [...] disease. 3. Mild cardiomegaly. SL: TPAINTER-PC 05/20/2018 [facility] Breast Mammo Scrn CHRISTOPHER incl CAD MA BILATERAL DIGITAL SCREENING MAMMOGRAM WITH CAD: 04/21/2017 CLINICAL: Routine/Screening. Current study was evaluated with a Computer Aided Detection (CAD) system. COMPARISON:Comparison is made to exams dated: 04/19/2016 mammogram, 04/11/2015 mammogram, 10/05/2013 mammogram, and 09/29/2012 mammogram - [facility]. TECHNIQUE: Mammographic views were obtained using digital [...] is recommended.(04/22/2018) This exam was interpreted at [id number] at [facility]. Tiarra calloway/penrad:04/21/2017 14:27:23 Streetcar Conductor(s): Lashae Licona RT(R)(M), [facility] letter sent: BI-RADS 1/2 Mammogram BI-RADS: 2 Benign [facility] Christopher MA - DIGITAL MAMMO SCREENING CHRISTOPHER MA BILATERAL DIGITAL SCREENING MAMMOGRAM WITH CAD: 04/19/2016 CLINICAL: Routine. Current study was evaluated with a Computer Aided Detection (CAD) system. Comparison is made to exams dated: 04/11/2015 mammogram, 10/05/2013 mammogram, 09/29/2012 mammogram, 06/22/2011 mammogram - [facility], 01/30/2010 mammogram - [facility] and 11/20/2008 mammogram. The tissue of both breasts is almost entirely fat. There are benign vascular calcifications in both breasts. No significant masses, calcifications, or other findings are seen in either breast. There has been no significant interval change. IMPRESSION: BENIGN There is no mammographic evidence of malignancy. A 1 year screening mammogram is recommended. Professional services are provided by the [facility]. Idris Dubose M.D., cm/penrad:04/20/2016 10:35:06 Streetcar Conductor: Lashae WRIGHT(Dk)(Lynette), [facility] This exam was dictated and interpreted by [id number] for MARIBETH Rodriguez, 15. letter sent: Normal exam Mammogram BI-RADS: 2 Benign 04/19/2016 MARIB[facility] Cle[facility] Digital Mammo Screening Christopher MA - DIGITAL MAMMO SCREENING CHRISTOPHER MA BILATERAL DIGITAL SCREENING MAMMOGRAM WITH CAD: 04/11/2015 CLINICAL: Routine. Current study was evaluated with a Computer Aided Detection (CAD) system. Comparison is made to exams dated: 10/05/2013 mammogram, 09/29/2012 mammogram, 06/22/2011 mammogram - [facility], 01/30/2010 mammogram - [facility], 11/20/2008 mammogram and 11/09/2004 mammogram. The tissue of both breasts is almost entirely fat. There are benign vascular calcifications in both breasts. No significant masses, calcifications, or other findings are seen in either breast. There has been no significant interval change. IMPRESSION: BENIGN There is no mammographic evidence of malignancy. A 1 year screening mammogram is recommended. Idris Dubose M.D., cm/penrad:04/14/2015 08:49:33 Streetcar Conductor: Sruthi Trimble, [facility] This exam was dictated and interpreted by [id number] for MARIBETH Clements. letter sent: Normal exam Mammogram BI-RADS: 2 Benign 04/11/2015 MARIBETH Clements Consultation Notes No Data Provided for This Section Discharge Summaries No Data Provided for This Section History and Physicals No Data Provided for This Section Vital Signs Vital Sign Value Date Comments Source Weight 174 05/31/2018 [facility] Height 70 05/31/2018 [facility] Heart Rate 81 05/31/2018 [facility] Diastolic (mm Hg) 72 05/31/2018 [facility] Systolic (mm Hg) 118 05/31/2018 [facility] Weight 178 05/03/2018 Mohamed O Jeroudi Height 61 05/03/2018 [facility] Temperature Oral (F) 96.0 F 05/03/2018 [facility] Heart Rate 88 05/03/2018 [facility] Diastolic (mm Hg) 82 05/03/2018 [facility] O Jeroudi Systolic (mm Hg) 138 05/03/2018 Mohamed O Jeroudi Systolic (mm Hg) 105 11/04/2016 [facility] Diastolic (mm Hg) 55 11/04/2016 [facility] Systolic (mm Hg) 151 11/04/2016 [facility] Diastolic (mm Hg) 95 11/04/2016 [facility] Systolic (mm Hg) 135 11/04/2016 [facility] Diastolic (mm Hg) 51 11/04/2016 [facility] Respitory Rate 15 11/04/2016 [facility] Respitory Rate 15 11/04/2016 [facility] Respitory Rate 17 11/04/2016 [facility] BMI Calculated 32.2 11/03/2016 [facility] Weight 77.301 11/03/2016 [facility] Height 154.94 cm 11/03/2016 [facility] Heart Rate 63 11/03/2016 [facility] Temperature Oral (F) 98.0 F 11/03/2016 [facility] 169 [facility] Height 61 10/13/2016 Mohamed O Jeroudi Temperature [...] Provider ADM Date DC Date Status Source [facility] SKYLER [id number] MIGUEL FENTON 02/12/2011 02/12/2011 Discharged [facility] Outpatient [id number] 553.3/530.81/562.10 [facility] 03/18[facility]2011 Active [facility] MD STEFF De Luna Unknown [id number] 03/11/2014 03/11/2014 MD STEFF Shin Unknown [id number] 03/11/2014 03/11/2014 MD STEFF Shin Unknown [id number] 03/11/2014 03/11/2014 Thiago Chávez MD [place] Unknown [id number] 04/01/2014 04/01/2014 Thiago Chávez MD PA Unknown [id number] 04/01/2014 04/01/2014 Thiago Chávez [facility] [id number] Shalini Mercer 05/16/2014 05/16/2014 [facility] Thiago Chávez MD PA Unknown [id number] 05/27/2014 05/27/2014 Thiago Chávez [facility] [place] [facility] [id number] Christian Yu Ayestas 04/11/2015 04/12/2015 [facility] [place] [place] [facility] [id number] Christian Yu Ayestas 04/19/2016 04/20/2016 [facility] [place] [facility] [id number] Nguyễn Finch 11/04/2016 11/04/2016 [facility] [place] [facility] [id number] Christian Yu Ayestas 04/21/2017 04/22/2017 [facility] [place] Departed Emergency Room [id number] NATACHA MELVIN MD 05/19/2018 05/20/2018 [facility] Outpatient [id number] ABNORMAL LIVER ENZYMES MIGUEL FENTON Active [facility] Procedures Procedure Code Date Perfomer Comments Source Cholecystectomy [id number] [facility] [place] Colonoscopy [id number] [facility] [place] Total hysterectomy [id number] [facility] [place] Cholecystectomy [id number] [facility] [id number] [facility] Total hysterectomy [id number] [facility] Assessment and Plan No Data Provided for This Section Plan of Care Plan of Care Date Source Discharge Date 05/20/18 12:35am Disposition TRANS TO OTHER [place] [facility] Condition at Discharge Stable Forms Provided Work/School Excuse Prescriptions See Medication Section 05/20/2018 [facility] Social History Social History Date Source Smoking Status Start Date Stop Date Never Smoker 05/20/2018 [facility] Social History TypeResponse Alcohol Past Smoking Status Former smoker; Type: Cigarettes; Exposure to Tobacco Smoke None; Cigarette Smoking Last 365 Days No; Reg Smoking Cessation Counseling No 11/03/2016 [facility] Social History TypeResponse Alcohol Past Smoking Status Former smoker; Type: Cigarettes; Exposure to Tobacco Smoke None; Cigarette Smoking Last 365 Days No; Reg Smoking Cessation Counseling No 11/03/2016 [facility] Social History ElementQualifiersDate Reported Smoking . Status Former Smoker quit in 1978September 23, 2014 Alcohol Use No. September 23, 2014 Alcohol Screening: No. Did you have a drink containing alcohol in the past year?: No, Points: 0, Interpretation: Negative September 23, 2014 Marital Status: . September 23, 2014 Do you drink alcohol? No. September 23, 2014 Occupation: . Retired [employer] September 23, 2014 09/23/2014 Thiago Chávez Family History Value Date Source QualifierDescriptionCommentDate Reported Mother [place] September 23, 2014 Father Unknown September 23, 2014 12/13/2015 Thiago Chávez Advance Directives Order Name Results Value Date Source Advance Directives Advance Directives Directive Response Recorded Date/Time Does the patient have an advance directive? No 05/19/18 10:46pm Do you have a Directive to Physician? No 05/19/18 10:46pm Do you have a Medical Power of Professor Of Chemical Engineering? No 05/19/18 10:46pm Do you have an out of hospital Do Not Resuscitate Order? No 05/19/18 10:46pm Do you have any special needs we should be aware of? No 05/19/18 10:46pm Do you have a support person here with you today? Yes 05/19/18 10:46pm Did patient receive Notice of Privacy Practices? Yes 05/19/18 10:46pm Did patient receive patient rights and responsibilities? Yes 05/19/18 10:46pm 05/20/2018 [facility] Functional Status No Data Provided for This Section
--- OUTSIDE RECORDS SUMMARY | 2018-12-02 11:11 | XMS REPORT ---
Author Author Tanika Ward Organization [employer] Address Unknown Phone Unavailable Care Team Providers Care Recycle Driver Name Role Phone Tanika Ward CP Unavailable Allergies, Adverse Reactions, Alerts Substance Reaction Event Type N.K.D.A. Info Not Available Non Drug Allergy Problems Problem Type Condition Code Onset Dates Condition Status Assessment Hospital discharge follow-up Z09 Active Assessment Pneumonia of lower lobe due to infectious organism, unspecified laterality J18.1 Active Medications Medication Code System Code Instructions Start Date End Date Status Dosage Omeprazole [facility] 13684127074 40 mg Orally Once a day Active 1 capsule Levothyroxine Sodium ND 68399324942 50 MCG Orally Once a day Active 1 tablet on an empty stomach in the morning Levaquin [facility] [place] 61840384099 500 mg Orally Once a day May 31, 2018 Jun 20, 2018 Active 1 tablet Losartan Potassium ND 44675970352 100 MG Orally Once a day Active 1 tablet Naproxen ND 77792035627 375 MG Orally every 12 hrs Active 1 tablet with food or milk as needed Dextromethorphan-Guaifenesin [facility] [place] [address]-11 10-100 MG/5ML Orally every 4 hrs Active 10 ml as needed Lamotrigine ND 75178563775 200 MG Orally Twice a day Active [address] [facility] [place] 58137262094 30-600 MG Orally every 12 hrs May 31, 2018 Active 1 tablet as needed Levaquin ND 38913391258 500 mg Orally Once a day Active 1 tablet Acetaminophen ND 09377206673 325 MG Orally every 4 hrs Active 1 tablet as needed Amlodipine Besylate ND 96137263784 5 MG Orally Once a day if SBP >135 Active 1 tablet PredniSONE ND 42308655486 10 mg Orally 2 tablets x3 dats, 1 tablet x3 days and 1/2 tablet for 3 days Active as directed Oseltamivir Phosphate [facility] [place] 75106752727 75 mg Orally every twelve hours Active 1 capsule Ranitidine HCl ND 58558082445 150 MG Orally Once a day Active 1 capsule at bedtime Vital Signs Date/Time: May 31, 2018 BMI 24.96 Index Weight 174 lbs Height 70 in Cardiac Monitoring Heart Rate 81 /min Blood Pressure Diastolic 72 mm Hg Blood Pressure Systolic 118 mm Hg Results No Known Results Summary Purpose [employer] Submission
[2018-12-02] MEDS ORDERED: TESSALON PERLE100 MG PO (12:29)
[2018-12-02] MEDS ORDERED: ZITHROMAX500 MG PO (12:29)
[2018-12-02] MEDS ORDERED: VENTOLIN HFA18 GM INH (12:31)
--- NOTE | 2018-12-02 12:38 | Diagnostic Imaging Report ---
Frontal and lateral views of the chest. HISTORY: Constant cough COMPARISON: None available. DISCUSSION: Lungs: Prominence of the peribronchial interstitial markings. No evidence of a consolidative pneumonia or pulmonary alveolar edema. Pleura: No pleural effusion or pneumothorax. Heart and mediastinum: The cardiomediastinal silhouette appears unremarkable. Bones and soft tissues: Appear unremarkable. IMPRESSION: Findings compatible with a nonspecific bronchitis. Signed by: Dr. Minh Brian D.O., M.M.M. on 12/02/2018 12:34 PM
[2018-12-02 13:19] VITALS: BP 146/77
== END 2018-12-02 13:21 | disposition home or self-care (01) ==
LOC: FSED 11:07
DX: R05 Cough (principal); J20.9 Acute bronchitis, unspecified
CPT/HCPCS: 71046; 99283

== ENCOUNTER 2020-05-17 11:42 | Emergency (ER) | payer MEDICARE, OTHER ==
[~2020-05-17] VITALS: Ht 160 cm; Wt 77.1 kg
[~2020-05-17 11:42] MED LIST changes: +TESSALON PERLE100 MG PO; +VENTOLIN HFA18 GM INH; +ZITHROMAX500 MG PO
== END 2020-05-17 13:00 | disposition home or self-care (01) ==
LOC: ER 12:00
DX: U07.1 COVID-19 (principal); R50.9 Fever, unspecified; R53.1 Weakness; I10 Essential (primary) hypertension; E03.9 Hypothyroidism, unspecified
CPT/HCPCS: 99283